=== PATIENT | male | born 1960 | race Caucasian/White ===

== ENCOUNTER 2019-04-05 11:24 | Inpatient (IN) ==
[2019-04-05] MEDS ORDERED: NS 1,000 ML IV ONE (11:59)
[2019-04-05] MEDS ORDERED: MORPHINE IV ONE (11:59)
[2019-04-05] MEDS ORDERED: VANCOMYCIN 1 GM/NS 1 GM/250 ML IVPB IV ONE ×2 (11:59→16:00)
[2019-04-05] MEDS ORDERED: ZOSYN 4.5 GM in NS 100 ML IV ONE (11:59)
[2019-04-05] MEDS ORDERED: ZOFRAN IV ONE (11:59)
[2019-04-05 12:37] LABS: ALLEN TEST YES; BE 2.3 mmoll (-3.0-3.0); BLOOD TYPE ARTERIAL; HCO3-(ACT) 26.6 mmoll (20.0-26.0); METHB 0.4 % (0.0-1.5); O2(CT) 11.6 mL/dL (15.0-23.0); O2HB 90.7 % (95.0-99.0); PCO2(98.6) 38 mmHg (35-45); PO2(98.6) 55 mmHg (60-100); SAMPLE BLOOD; SAO2 92.9 % (95.0-100.0); THB 9.1 g/dL (11.5-17.4); pH(98.6) 7.45 (7.35-7.45)
[2019-04-05 12:38] LABS: MODALITY ROOM AIR
--- NOTE | 2019-04-05 12:57 | Diag Imaging Result Doc PS360 ---
EXAM: CHEST-PORTABLE 04/05/2019 HISTORY: fever TECHNIQUE: AP portable at 1247 COMMENT: There is increased pulmonary vascularity. The heart size does not appear to be enlarged. The inspiration is slightly less optimal than on 06/29/2018. Otherwise, there has been no significant change. IMPRESSION: Stable chest. Electronically signed by Moody Balderrama 04/05/2019 12:54 PM
--- NOTE | 2019-04-05 12:59 | Diag Imaging Result Doc PS360 ---
EXAM: FOOT COMPLETE LEFT 04/05/2019 HISTORY: osteomyelitis heel TECHNIQUE: Three views COMMENT: There is soft tissue gas throughout the plantar aspect of the heel. This may be due to gas gangrene. There has been amputation of the distal midportion of the fifth metatarsal. Compared to the previous study of 12/01/2012 the plantar spur of the calcaneus is not as well demonstrated and may be eroded. This may be an indication of osteomyelitis. IMPRESSION: Superficial osteomyelitis of the plantar aspect of the calcaneus. Possible gas gangrene. Electronically signed by Moody Balderrama 04/05/2019 12:56 PM
[2019-04-05 13:00] LABS: BASO# 0.02 X1000 (0.0-0.2); BASO% 0.1 % (0.0-0.8); EOS# 0.65 X1000 (0.0-0.7); HEMATOCRIT 27.7 % (42.0-52.0); HEMOGLOBIN 8.8 g/dL (14.0-18.0); IMM GRAN# 0.05 X1000 (0.0-0.04); IMM GRAN% 0.3 % (0.0-0.5); LYMPH# 1.09 X1000 (1.2-3.4); LYMPH% 6.7 % (20.5-51.1); MCH 27.1 PG (27-31); MCHC 31.8 g/dL (33-37); MCV 85.2 FL (81-99); MONO# 1.64 X1000 (0.11-0.59); MPV 9.5 FL (7.4-10.4); NEUT# 12.93 X1000 (1.4-6.5); NEUT% 78.9 % (42.2-75.2); PLT 478 X1000 (130-400); RBC 3.25 XMIL (4.7-6.1); RDW 13.6 % (11.5-14.5); WBC 16.38 X1000 (4.8-10.8)
[2019-04-05 13:09] LABS: AGAP 13; ALBUMIN 2.9 g/dL (3.5-5.0); ALKALINE PHOSPHATASE 213 U/L (32-122); BUN 29 mg/dL (8-22); CALCIUM 8.2 mg/dL (8.8-10.2); CHLORIDE 97 mmol/L (98-107); COSMO 278; ESTIMATED GFR > 60; GLUCOSE 136 mg/dL (70-104); GOT 17 U/L (10-34); GPT 13 U/L (10-44); MAGNESIUM 1.5 mg/dL (1.5-2.7); POTASSIUM 3.9 mmol/L (3.5-5.1); SODIUM 135 mmol/L (136-145); TCO2 25 mmol/L (25-35); TOTAL BILIRUBIN 0.85 mg/dL (0.20-1.00); TOTAL PROTEIN 5.8 g/dL (6.3-8.3)
[2019-04-05 13:11] LABS: INR 1.87; PROTIME 21.9 Seconds (11.0-16.0)
--- NOTE | 2019-04-05 13:13 | EKG Report ---
Test Performed on : 04/05/2019 1:09:03 PM Test Reason : fever Blood Pressure : / mmHG Vent. Rate : 078 BPM Atrial Rate : 078 BPM P-R Int : 170 ms QRS Dur : 096 ms QT Int : 390 ms P-R-T Axes : -05 -06 183 degrees QTc Int : 444 ms Normal sinus rhythm. Low voltage QRS Nonspecific T wave abnormality Abnormal ECG When compared with ECG of 01-JUN-2018 18:06, aberrant conduction. is no longer present Unconfirmed Result
[2019-04-05 13:34] LABS: ACETONE SERUM NEGATIVE (NEGATIVE)
--- NOTE | 2019-04-05 14:17 | PROVIDER DOCUMENTATION ---
This chart was entered by Aislinn Bo Scribe, acting as scribe for Kendall De Leon MD. HPI-Rash/Wound/ReCheck - General Stated Complaint: Left foot eval Time Seen by Provider: 04/05/19 11:58 Source: patient Allergies/Adverse Reactions: Allergies Allergy/AdvReac Type Severity Reaction Status Date / Time adhesive tape Allergy RASH Verified 01/23/19 16:14 Bleach (Sodium Hypochlorite) Allergy RASH Verified 01/23/19 16:14 Iodinated Contrast Media AdvReac Unknown Verified 01/23/19 16:14 [IV Dye] Home Medications: Home Medication List Medication Instructions Recorded Confirmed Last Taken Type Isosorbide Mononitrate E.r. [Imdur] 60 mg PO DAILY tablet 10/28/17 06/28/18 06/28/18 Rx Omeprazole 20 mg PO ACB 04/18/18 06/28/18 06/28/18 History Potassium Chloride 10 meq PO BID 04/18/18 06/28/18 06/27/18 History Pregabalin [Lyrica] 75 mg PO BID 04/18/18 06/28/18 06/28/18 History Hydrocodone/Acetaminophen 1 tab PO TID PRN #14 tab 05/26/18 06/28/18 06/28/18 Rx [Hydrocodone-Acetamin 7.5-325] Torsemide 20 mg PO BID 06/28/18 06/28/18 06/28/18 08:00 History Chlorhexidine Gluconate [Peridex] 15 ml MT BID udc 07/06/18 Unknown Rx Furosemide [Lasix] 40 mg PO DAILY tablet 07/06/18 Unknown Rx Hydrocodone/APAP 7.5 mg/325 mg 1 each PO Q6H PRN PRN tablet 07/06/18 Unknown Rx [[place]-7.5] Levofloxacin [Levaquin] 750 mg PO DAILY tablet 07/06/18 Unknown Rx Menthol/Zinc Oxide Ointment 2 gm TOP 4XDAY tube 07/06/18 Unknown Rx [Calmoseptine Ointment] Multivitamins/Iron [Hemocyte Plus 1 each PO DAILY capsule 07/06/18 Unknown Rx Capsule] Potassium Chloride E.r. [Klor-Con] 10 meq PO DAILY tablet 07/06/18 Unknown Rx Spironolactone [Aldactone] 25 mg PO DAILY tablet 07/06/18 Unknown Rx Tamsulosin [Flomax] 0.4 mg PO DAILY capsule 07/06/18 Unknown Rx Vortioxetine Hydrobromide 10 mg PO DAILY tablet 07/06/18 Unknown Rx [Trintellix] - History of Present Illness-Dermatology Nature of Presenting Problem: Patient is a 58 year old male who presents to the ED via EMS with skin ulcer to left heel. Report skin ulcer has gradually worsened. States chills. History of diabetes. Location: reports: feet (left heel) Quality: reports: painful Severity: reports: mild Onset/Duration: reports: gradual Timing: reports: still present, getting worse Context/Associated Symptoms: reports: other (skin ulcer) Locality of [place]: Home Similar Symptoms Previously?: Yes Recently seen or treated by another doctor?: No Review of Systems - Adult - REVIEW OF SYSTEMS - ADULT Constitutional: reports: see HPI, chills. denies: fever, fatique Eyes: reports: no symptoms reported Ears, Nose, Mouth & Throat: reports: no symptoms reported Cardiovascular: reports: no symptoms reported Respiratory: reports: no symptoms reported Gastrointestinal: reports: no symptoms reported Genitourinary: reports: no symptoms reported Musculoskeletal: reports: no symptoms reported Integumentary: reports: see HPI, skin sores/ulcer (skin ulcer to left heel). de nies: hives, itching, rash Neurological: reports: no symptoms reported Psychiatric: reports: no symptoms reported Endocrine: reports: no symptoms reported Hematologic/Lymphatic: reports: no symptoms reported Allergic/Immunologic: reports: no symptoms reported All Other Systems: Reviewed and Negative Past History - Adult - PAST MEDICAL HISTORY-ADULT Review of Records: reports: Old Records Reviewed, Social history reviewed & non- contributory. Major Childhood Illnesses: reports: denies history Cardiovascular: reports: CAD, CHF, HTN, hyperlipidemia, [place] Respiratory: reports: denies history Gastrointestinal: reports: GERD Obstetrical/Gynecological: reports: denies history Genitourinary: reports: denies history Musculoskeletal: reports: arthritis, other (osteomyelitis) Neurological: reports: denies history Psychiatric: reports: denies history Endocrine/Immune: reports: Diabetes Other Conditions: reports: denies history - PRIOR SURGERIES/PROCEDURES Surgical/Procedure History: reports: reviewed, not pertinent, appendectomy, cardiac stent, other (right BKA) - PRIOR HOSPITALIZATIONS Prior Hospitalizations: reports: other (hx of osteomyelitis) - IMMUNIZATION STATUS Childhood Immunizations: UTD Flu Vaccine: UTD - FAMILY HISTORY Family History: diabetes, reviewed, not pertinent - SOCIAL HISTORY Smoking: denies Substance Use: denies Physical Exam-General - PHYSICAL EXAM-ADULT Initial Vital Signs Reviewed: Yes - CONSTITUTIONAL General Appearance: alert, no apparent distress, obese. negative: lethargic - HEAD, EARS, NOSE, MOUTH & THROAT HENMT: normocephalic/atraumatic, moist mucous membranes. negative: angioedema - RESPIRATORY Respiratory: chest non-tender, lungs clear, normal breath sounds. negative: rales, rhonchi, wheezing - CARDIOVASCULAR Cardiovascular: normal peripheral pulses, regular rate, rhythm. negative: tachycardia - GASTROINTESTINAL (ABDOMEN) Abdominal Exam: normal bowel sounds, non tender, soft. negative: guarding - MUSCULOSKELETAL Extremity: other (7 cm by 5 cm area of necrosis to left heel with edema, erythema, warmth and foul odor. right BKA. chronic stasis dermatitis to left lower extremity.) Peripheral Pulses: dorsalis-pedis (R): 0 (BKA ), dorsalis-pedis (L): 2+ - SKIN Integumentary: other (7 cm by 5 cm area of necrosis to left heel with edema, erythema, warmth and foul odor. chronic stasis dermatitis to left lower extremity.) - NEUROLOGIC Neurologic: grossly normal. negative: aphasia, facial droop - PSYCHIATRIC Psych/Mental Status: normal mood/affect. negative: anxious, paranoid Progress - PLAN OF CARE/RESULTS Progress/Plan/Lab Results: Vital Signs - 8 hr 04/05/19 11:30 04/05/19 14:13 Temperature 98.6 F Pulse Rate 77 Respiratory Rate 20 Blood Pressure 117/53 O2 Sat by Pulse Oximetry 97 Laboratory Results - last 24 hr 04/05/19 04/05/19 04/05/19 12:15 12:25 12:25 WBC 16.38 H RBC 3.25 L Hgb 8.8 L Hct 27.7 L MCV 85.2 MCH 27.1 MCHC 31.8 L RDW Std Deviation 13.6 Plt Count 478 H MPV 9.5 Immature Gran % (Auto) 0.3 Neut % (Auto) 78.9 H Lymph % (Auto) 6.7 L Randolph % (Auto) 10.0 H Eos % (Auto) 4.0 Baso % (Auto) 0.1 Immature Gran # (Auto) 0.05 H Neut # (Auto) 12.93 H Lymph # (Auto) 1.09 L Randolph # (Auto) 1.64 H Eos # (Auto) 0.65 Baso # (Auto) 0.02 PT INR Specimen Type ARTERIAL Sample Site L RADIAL pH 7.45 pCO2 38 pO2 55 L HCO3 26.6 H Base Excess 2.3 Oxyhemoglobin 90.7 L ABG O2 Sat (Calculated) 11.6 L ABG O2 Saturation 92.9 L ABG Carboxyhemoglobin 2.00 ABG Methemoglobin 0.4 Harjeet Test YES A-a O2 Difference 47.0 Total Hemoglobin 9.1 L Lactate 0.90 Blood Gas Modality ROOM AIR FiO2 % 21.0 Sodium 135 L Potassium 3.9 Chloride 97 L Carbon Dioxide 25 Anion Gap 13 BUN 29 H Creatinine 1.0 Estimated GFR/1.73 m2 > 60 BUN/Creatinine Ratio 29 Glucose 136 H POC Glucose Calculated Osmolality 278 Calcium 8.2 L Magnesium 1.5 Total Bilirubin 0.85 AST 17 ALT 13 Alkaline Phosphatase 213 H Troponin T [id number]-K-Yprdshluuix Pept Total Protein 5.8 L Albumin 2.9 L Globulin 2.9 Albumin/Globulin Ratio 1.0 Plasma Lactate Acetone Level NEGATIVE Blood Type Antibody Screen 04/05/19 04/05/19 04/05/19 12:25 12:25 12:25 WBC RBC Hgb Hct MCV MCH MCHC RDW Std Deviation Plt Count MPV Immature Gran % (Auto) Neut % (Auto) Lymph % (Auto) Randolph % (Auto) Eos % (Auto) Baso % (Auto) Immature Gran # (Auto) Neut # (Auto) Lymph # (Auto) Randolph # (Auto) Eos # (Auto) Baso # (Auto) PT 21.9 H INR 1.87 Specimen Type Sample Site pH pCO2 pO2 HCO3 Base Excess Oxyhemoglobin ABG O2 Sat (Calculated) ABG O2 Saturation ABG Carboxyhemoglobin ABG Methemoglobin Harjeet Test A-a O2 Difference Total Hemoglobin Lactate Blood Gas Modality FiO2 % Sodium Potassium Chloride Carbon Dioxide Anion Gap BUN Creatinine Estimated GFR/1.73 m2 BUN/Creatinine Ratio Glucose POC Glucose Calculated Osmolality Calcium Magnesium Total Bilirubin AST ALT Alkaline Phosphatase Troponin T Tnp-[id number]-Ajmjyvemyxz Pept 9843 H Total Protein Albumin Globulin Albumin/Globulin Ratio Plasma Lactate 1.1 Acetone Level Blood Type Antibody Screen 04/05/19 04/05/19 04/05/19 12:25 12:25 13:10 WBC RBC Hgb Hct MCV MCH MCHC RDW Std Deviation Plt Count MPV Immature Gran % (Auto) Neut % (Auto) Lymph % (Auto) Randolph % (Auto) Eos % (Auto) Baso % (Auto) Immature Gran # (Auto) Neut # (Auto) Lymph # (Auto) Randolph # (Auto) Eos # (Auto) Baso # (Auto) PT INR Specimen Type Sample Site pH pCO2 pO2 HCO3 Base Excess Oxyhemoglobin ABG O2 Sat (Calculated) ABG O2 Saturation ABG Carboxyhemoglobin ABG Methemoglobin Harjete Test A-a O2 Difference Total Hemoglobin Lactate Blood Gas Modality FiO2 % Sodium Potassium Chloride Carbon Dioxide Anion Gap BUN Creatinine Estimated GFR/1.73 m2 BUN/Creatinine Ratio Glucose POC Glucose 136 H Calculated Osmolality Calcium Magnesium Total Bilirubin AST ALT Alkaline Phosphatase Troponin T 0.203 H Hmy-C-Esvcapdwrzn Pept Total Protein Albumin Globulin Albumin/Globulin Ratio Plasma Lactate Acetone Level Blood Type O POSITIVE Antibody Screen NEGATIVE Orders Category Date Time Status Finger Stick Blood Sugar (ED) DIRECTED Care 04/05/19 11:57 Active Nursing- Obtain EKG once Care 04/05/19 11:57 Active Saline Loc NOW Care 04/05/19 11:57 Active CHEST-PORTABLE [RAD] Stat Exams 04/05/19 11:58 Completed FOOT COMPLETE LEFT [RAD] Stat Exams 04/05/19 11:58 Completed ABG [RESP] Routine Lab 04/05/19 12:15 Completed ACETONE SERUM [CHEM] Stat Lab 04/05/19 12:25 Completed BLOOD CULTURE [BLDCUL] Stat Lab 04/05/19 12:30 Results CBC WITH ELECTRONIC DIFF [HEME] Stat Lab 04/05/19 12:25 Completed COMPREHENSIVE METABOLIC PANEL [CHEM] Stat Lab 04/05/19 12:25 Completed LACTATE, PLASMA [CHEM] Stat Lab 04/05/19 12:25 Completed MAGNESIUM [CHEM] Stat Lab 04/05/19 12:25 Completed PRO B-NATRIURETIC PEPTIDE Stat Lab 04/05/19 12:25 Completed PROTIME WITH INR [COAG] Stat Lab 04/05/19 12:25 Completed SED RATE [HEME] Stat Lab 04/05/19 11:58 Received TROPONIN T Stat Lab 04/05/19 12:25 Completed TYPE & SCREEN [BBK] Stat Lab 04/05/19 12:25 Completed URINALYSIS W/POSS RFLX CULT [URINALYSIS] Stat Lab 04/05/19 11:58 Uncollected WOUND CULTURE INC GRAM STAIN [RM] Routine Lab 04/05/19 12:42 Received 0.9% Sodium Chloride Inj [Ns] 1,000 ml Med 04/05/19 11:59 Discontinued IV 999 mls/hr Morphine Med 04/05/19 11:59 Discontinued 4 mg IV NOW ONE Ondansetron [Zofran] Med 04/05/19 11:59 Discontinued 4 mg IV NOW ONE Piperacillin/Tazobactam [Zosyn] 4.5 gm Med 04/05/19 11:59 Discontinued 0.9% Sodium Chloride Inj [Ns] 100 ml IV NOW Vancomycin 1 gm/Ns Med 04/05/19 11:59 Discontinued 1 gm in 250 ml IV NOW EKG [EKG] Stat Ther 04/05/19 11:57 Draft Result Diagrams: 04/05/19 12:25 04/05/19 12:25 - EKG 1 Time of EKG reading by physician:: 13:09 EKG Read and Signed by:: Kendall De Leon EKG Interpretation (*Must complete 3 of following elements*): Abnormal Rate: 78 Rhythm: normal sinus rhythm [place]: normal QRS: other (low voltage) [place] Interval: normal Comments: nonspecific T wave abnormality. - XRAY 1 XRAY Study: Chest Impression: See EMR Report ( EXAM: CHEST-PORTABLE 04/05/2019 HISTORY: fever TECHNIQUE: AP portable at 1247 COMMENT: There is increased pulmonary vascularity. The heart size does not appear to be enlarged. The inspiration is slightly less optimal than on 06/29/2018. Otherwise, there has been no significant change. IMPRESSION: Stable chest. Electronically signed by Moody Balderrama 04/05/2019 12:54 PM 04/05/19 1254 Interpreting Physician: Moody Balderrama MD Dictated Date/Time: 04/05/19 1253 cc: Kendall De Leon MD; Dru Ye MD) 2 XRAY: Left XRAY Study: Foot (EXAM: FOOT COMPLETE LEFT 04/05/2019 HISTORY: osteomyelitis heel TECHNIQUE: Three views COMMENT: There is soft tissue gas throughout the plantar aspect of the heel. This may be due to gas gangrene. There has been amputation of the distal midportion of the fifth metatarsal. Compared to the previous study of 12/01/2012 the plantar spur of the calcaneus is not as well demonstrated and may be eroded. This may be an indication of osteomyelitis. IMPRESSION: Superficial osteomyelitis of the plantar aspect of the calcaneus. Possible gas gangrene. Electronically signed by Moody Balderrama 04/05/2019 12:56 PM 04/05/19 1256 Interpreting Physician: Moody Balderrama MD Dictated Date/Time: 04/05/19 1255 cc: Kendall De Leon MD; Dru Ye MD) - CONSULTS/PCP/HOSPITALIST Notification #1 *Consult/PCP/Hospitalist*: Dr. Ye Time Discussed: 13:33 Reason/Comments: Dr. De Leon consulted with Dr. Ye about patient. Consult Disposition: other (Dr. Ye states patient is not his private patient.) #2 Consult: AURELIO Alvarado Time Discussed: 14:15 Consult Disposition: Will see in ED Departure - Departure Date of Disposition Decision: 04/05/19 Time of Disposition Decision: 13:31 DIAGNOSIS: Gangrene, Acute osteomyelitis of left calcaneus, Elevated troponin I level, Type 2 diabetes mellitus with hyperglycemia, with long-term current use of insulin Congestive heart failure (CHF) Qualifiers: Heart failure type: combined systolic and diastolic Heart failure chronicity: acute on chronic Qualified Code(s): I50.43 - Acute on chronic combined systolic (congestive) and diastolic (congestive) heart failure Anemia Qualifiers: Anemia type: iron deficiency Iron deficiency anemia type: other iron deficiency Qualified Code(s): D50.8 - Other iron deficiency anemias Disposition: ADMITTED INPATIENT 09 Certified Medical Emergency: Emergent Condition: Fair Referrals and Follow-Ups: Dru Ye MD [Primary Care Provider] - - Critical Care Note This patient required my direct & personal management of CC.: Yes Total Time (mins): 35 (multiple physician consults, discussion with family. evaluate for possible sepsis) Critical Care Statement: This patient required my direct personal management to treat or rule out processes, the absence of which, could potentiallly result in sudden, clinically significant life or limb threatening deterioration. Attestation - Physician/ LUZ ELENA Attestation Patient care was provided by Advanced Practice Provider:: No The physician spent face to face time with patient:: Yes Advanced Practice Provider documentation review:: Supervising physician onsite and consulted in the evaluation and care of this patient. The physician did have a face to face encounter with the patient. This chart was documented by the indicated scribe, (Aislinn Bo Scribe) and accurately reflects the services I performed and decisions made by me, Kendall De Leon MD, as attested by the provider's signature.
[2019-04-05] MEDS ORDERED: VANCOMYCIN IV PER PHARMACY MISC SCH (14:45)
[2019-04-05 15:02] LABS: URINE SOURCE CLEAN CATCH
[2019-04-05 15:16] LABS: BILIRUBIN URINE NEGATIVE (NEGATIVE); BLOOD URINE SMALL (NEGATIVE); COLOR YELLOW; GLUCOSE URINE NEGATIVE (NEGATIVE); KETONE URINE NEGATIVE (NEGATIVE); LEUKOCYTES URINE LARGE (NEGATIVE); NITRITE URINE NEGATIVE (NEGATIVE); PROTEIN URINE 30 mg/dL (NEGATIVE); SP GRAVITY URINE 1.014; TURBIDITY URINE HAZY (CLEAR); UR EPITHELIAL CELLS <10 /HPF (<10); URINE BACTERIA 1+ /HPF; URINE RBC <10 /HPF (<10); URINE WBC TNTC /HPF (<10); UROBILINOGEN URINE NORMAL (NORMAL)
[2019-04-05] MEDS ORDERED: NORCO-7.5 PO PRN (15:44)
[2019-04-05] MEDS ORDERED: BOUDREAUXS BUTT PASTE TOP PRN (16:46)
[2019-04-05] MEDS ORDERED: ATARAX PO PRN (16:46)
[2019-04-05] MEDS ORDERED: LEVSIN PO PRN (16:46)
[2019-04-05] MEDS ORDERED: COMPAZINE PO PRN (16:46)
[2019-04-05] MEDS: NS 1,000 ML IV SCH (16:49)
[2019-04-05] MEDS: ZOSYN 3.375 GM in NS 50 ML IV SCH ×2 (16:49→22:05)
[2019-04-05] MEDS ORDERED: IMODIUM PO PRN (17:00)
[2019-04-05] MEDS: HUMALOG SUBQ SCH ×2 (17:17→21:44)
[2019-04-05] MEDS: REGLAN PO SCH (17:21)
--- NOTE | 2019-04-05 17:31 | HISTORY AND PHYSICAL ---
HISTORY OF PRESENT ILLNESS: This is a 58-year-old, fairly recent admission. He had a right foot infection and he was recently admitted before. That was back in June 2018 and then he had admission again I think in November of 2018. He had right [id number] amputation performed 06/2019 without complication. He did have slow improving renal function at that time and presents with a left foot infection, anaerobic smell, generalized swelling, discoloration in the heel. PAST MEDICAL HISTORY: 1. Hospitalization 06/01/2018 through 06/04/2019, diagnosed with diabetic foot ulcer of the right heel, right toe, peripheral vascular disease. 2. Diabetes mellitus type 2. 3. Esophageal stricture. 4. Diabetic neuropathy of both legs, lower extremities. 5. Coronary artery disease status post stent in 2013. SURGICAL HISTORY: 1. Appendectomy. 2. Debridement surgeries. 3. Partial amputation of the left 5th toe with osteomyelitis and debridement per Dr. Thapa in the past as well. 4. Right peroneal balloon angioplasty. 5. Percutaneous right popliteal atherectomy per Dr. Sultana. ALLERGIES: Adhesive tape. SOCIAL HISTORY: I think he lives with his brother. He is disabled and wheelchair and bed. REVIEW OF SYSTEMS: He does not report any fever or chills.HEENT: No change in hearing or visual acuity. Respiratory: No increased work of breathing or dyspnea. Cardiovascular: No chest pain or tachy palpitation. GI and : No gross hematuria, dysuria. Musculoskeletal/Neurologic: Other than the neuropathy and recurrent diabetic ulcers, left foot swelling with a foot ulcer. PHYSICAL EXAMINATION: VITAL SIGNS: Temperature 98.5 degrees, pulse 77, respirations 16, blood pressure 117/57. His weight is 315 pounds, height 6 feet 2 inches. HEENT: Pupils are equal and round. LUNGS: Clear in all lung masters. CARDIOVASCULAR: Regular rhythm and rate without murmur or S3. ABDOMEN: Soft. SKIN: Warm and dry. Left foot with generalized swelling and ecchymosis at the heel and feels purulent, strong anaerobic smell. I do not see any other skin rashes, oral or nasal mucosa lesions. NECK: Supple. No adenopathy or thyromegaly. LABORATORY: His white count 16,380, hematocrit 27, hemoglobin 8.8, platelet count is 478,000. Sodium 135, potassium 3.9, chloride 97, BUN 29, creatinine 1.0, blood sugar 136. AST 17, ALT is 13, alkaline phosphatase is 213. Troponin was 0.203. ProBNP is 9,843. ProTime is 21 with an INR 1.87. Urinalysis: Cbt-xhzfxufg-tb-count white blood cells, 1+ bacteria. His blood gas, pH is 7.45, pCO2 is 38, PO2 is 55, lactate level is 0.9, and this was on room air. Chest x-ray, stable chest. Increased pulmonary vascularity. Heart size does not appear to be enlarged. Inspiration is slightly less optimal with the comparison 06/29/2018. Otherwise, no significant change. Foot x-ray, 3 views of the left foot: Superficial osteomyelitis, osteomyelitis of the plantar aspect of the calcaneus, possible gas gangrene. ASSESSMENT AND PLAN: 1. Infection, possible osteomyelitis of the left foot. I suspect we will need debridement. We will put him on broad-spectrum antibiotics. 2. Diabetes mellitus type 2 with severe peripheral neuropathy. He is status post right below-the- knee amputation, so we will have him on vancomycin and Zosyn. Ask Infectious Disease to help follow. 3. Vascular insufficiency of both legs. Apparently was worse on the right. 4. Chronic kidney disease stage 3. His creatinine is 1.0 which I think is pretty good. 5. Chronic venous insufficiency, legs, with edema. 6. History of congestive heart failure which is chronic. His last echocardiogram was I believe in September 2017. He has mild to moderate mitral regurgitation, mild tricuspid regurgitation. There is no aortic stenosis. Mitral valve was normal. Tricuspid valve was normal. Normal left ventricular size. Ejection fraction was 40 to 45%. Some anteroseptal hypokinesis. 7. History of coronary artery disease. He does have an anemia, normocytic anemia. Hematocrit is 27, hemoglobin 8.8. Aware. Suspect this is anemia of chronic disease. cc: Harjeet Roberts MD
[2019-04-05] MEDS: ZOFRAN IV PRN (19:56)
[2019-04-05] MEDS ORDERED: MICRO-K PO SCH (21:00)
[2019-04-05] MEDS: HUMULIN 70/30 SUBQ SCH (21:43)
[2019-04-05] MEDS: KLOR-CON PO SCH (22:04)
[2019-04-05] MEDS: COREG PO SCH (22:05)
[2019-04-06] MEDS: ZOSYN 3.375 GM in NS 50 ML IV SCH ×4 (02:47→23:00)
[2019-04-06] MEDS: VANCOMYCIN 1,800 MG in NS 500 ML IV SCH ×2 (05:02→18:42)
--- NOTE | 2019-04-06 05:15 | GENERAL SURGERY CONSULTATION ---
DATE: 04/05/2019 REASON FOR CONSULTATION: Left diabetic foot infection and osteomyelitis. HISTORY OF PRESENT ILLNESS: This is a 58-year-old male with known diabetic foot ulcers and peripheral vascular disease, who has been living at home with a long-standing left heel ulcer. Recently it started having swelling, warmth, and drainage. He is feeling nauseated and presented to the emergency room for further evaluation. PAST MEDICAL HISTORY: Peripheral vascular disease, diabetic foot ulcers, diabetes, chronic heart failure, coronary artery disease with a history of stents, esophageal stricture, diabetic neuropathy and retinopathy. PAST SURGICAL HISTORY: Angioplasties of the right lower extremity, right foot debridement, right BKA, partial amputation of toes on the left foot, appendectomy. SOCIAL HISTORY: He is nonambulatory, uses a mechanical wheelchair. He does have history of smoking, alcohol, or illicit drug use. ALLERGIES: Iodinated contrast media, bleach, adhesive tape. FAMILY HISTORY: Reviewed and noncontributory. HOME MEDICATIONS: Omeprazole, Imdur, Lyrica, torsemide, Flomax, Aldactone, Trintellix. REVIEW OF SYSTEMS: Ten systems reviewed and negative, except as noted above, as well as also he states he has chills. PHYSICAL EXAM: Vital signs: Temperature 98.5 degrees, pulse 77, respiratory rate 16, blood pressure 117/57. General: This is a chronically ill-appearing male who looks older than the stated age, in no acute distress. HEENT: Normocephalic, atraumatic. Extraocular muscles intact. Pupils equal, round, reactive to light. Sclerae anicteric. Neck: Supple. Trachea midline. No thyromegaly. Cardiovascular: Regular rate and rhythm. Respiratory: Clear bilateral breath sounds. No work of breathing. Gastrointestinal: Soft, obese, nontender, nondistended. No organomegaly or mass. Musculoskeletal: He is status post right BKA, which is well healed. He does move his left foot and both arms equally. Skin: He has significant edema of the lower left lower leg. There is a large eschar on the left heel with some bogginess to it and foul odor. LABORATORY: White cell count 16,000, hemoglobin 8.8, hematocrit 27, platelet count 478,000. INR 1.87. A pH 7.45, pCO2 is 38, PaO2 is 55, bicarb 26. Lactate 0.9. Glucose 136; BUN 29, creatinine 1.0, alkaline phosphatase 213. Urinalysis positive for bacteria and white blood cells, negative for nitrite. IMAGING: Left foot x-ray shows soft tissue gas throughout the plantar aspect of the heel and some erosion of the calcaneus. This is likely superficial osteomyelitis and possibly gas gangrene. ASSESSMENT AND PLAN: A 58-year-old male with diabetic foot infection with a left heel decubitus ulcer, possible osteomyelitis, and gas gangrene. He is hemodynamically stable. Vancomycin and Zosyn have been ordered. We will plan debridement in the operating room tomorrow. The salvageability of this foot is certainly in question. We will follow up with lower extremity arterial studies once he is stable. cc: Eduardo Escudero MD
[2019-04-06 06:10] LABS: BASO# 0.02 X1000 (0.0-0.2); BASO% 0.1 % (0.0-0.8); EOS% 3.8 % (0.0-10.0); HEMATOCRIT 25.4 % (42.0-52.0); IMM GRAN# 0.05 X1000 (0.0-0.04); IMM GRAN% 0.3 % (0.0-0.5); LYMPH# 1.27 X1000 (1.2-3.4); MCH 27.2 PG (27-31); MCHC 31.5 g/dL (33-37); MCV 86.4 FL (81-99); MONO% 8.9 % (1.7-9.3); MPV 9.5 FL (7.4-10.4); NEUT# 12.46 X1000 (1.4-6.5); NEUT% 78.9 % (42.2-75.2); PLT 463 X1000 (130-400); RBC 2.94 XMIL (4.7-6.1); RDW 13.6 % (11.5-14.5)
[2019-04-06] MEDS: NS 1,000 ML IV SCH ×2 (06:34→17:39)
[2019-04-06] MEDS: HUMALOG SUBQ SCH ×4 (06:36→22:28)
[2019-04-06] MEDS: PRILOSEC PO SCH (06:37)
[2019-04-06 06:42] LABS: AGAP 13; ALB/GLOB RATIO 0.8; ALBUMIN 2.5 g/dL (3.5-5.0); ALKALINE PHOSPHATASE 173 U/L (32-122); BUN 27 mg/dL (8-22); CALCIUM 8.2 mg/dL (8.8-10.2); CHLORIDE 103 mmol/L (98-107); COSMO 285; CREATININE 1.1 mg/dL (0.7-1.2); ESTIMATED GFR > 60; GLUCOSE 105 mg/dL (70-104); GOT 14 U/L (10-34); GPT 10 U/L (10-44); POTASSIUM 3.8 mmol/L (3.5-5.1); SODIUM 140 mmol/L (136-145); TCO2 24 mmol/L (25-35); TOTAL BILIRUBIN 0.66 mg/dL (0.20-1.00); TOTAL PROTEIN 5.8 g/dL (6.3-8.3)
[2019-04-06 06:49] LABS: FREE T4 1.11 ng/dL (0.93-1.70); TSH 2.46 uIUmL (0.27-4.20)
[2019-04-06] MEDS ORDERED: PRILOSEC PO SCH (07:00)
[2019-04-06] MEDS: COREG PO SCH ×2 (08:07→22:29)
[2019-04-06] MEDS: REGLAN PO SCH ×3 (08:35→16:23)
[2019-04-06] MEDS ORDERED: VERSED ONE (10:18)
[2019-04-06] MEDS ORDERED: DIPRIVAN 1% ONE (10:18)
[2019-04-06] MEDS ORDERED: FENTANYL ONE (10:18)
[2019-04-06] MEDS ORDERED: XYLOCAINE-MPF 2% ONE (10:18)
[2019-04-06 10:33] LABS: URINE SOURCE CATH
[2019-04-06] MEDS ORDERED: QUELICIN (DOSE) ONE (10:33)
[2019-04-06 10:37] LABS: BILIRUBIN URINE NEGATIVE (NEGATIVE); BLOOD URINE MODERATE (NEGATIVE); COLOR YELLOW; GLUCOSE URINE NEGATIVE (NEGATIVE); KETONE URINE TRACE mg/dL (NEGATIVE); LEUKOCYTES URINE LARGE (NEGATIVE); NITRITE URINE NEGATIVE (NEGATIVE); PROTEIN URINE TRACE mg/dL (NEGATIVE); SP GRAVITY URINE 1.016; TURBIDITY URINE HAZY (CLEAR); UR EPITHELIAL CELLS <10 /HPF (<10); URINE BACTERIA NEGATIVE /HPF; URINE RBC <10 /HPF (<10); URINE WBC TNTC /HPF (<10); UROBILINOGEN URINE NORMAL (NORMAL)
[2019-04-06] MEDS ORDERED: DECADRON ONE (11:48)
[2019-04-06] MEDS ORDERED: ZOFRAN ONE (11:48)
--- NOTE | 2019-04-06 13:49 | INFECTIOUS DISEASE CONSULT REP ---
DATE: 04/06/2019 CONCLUSION: The patient has a gangrenous left foot with possible gas gangrene and osteomyelitis. The patient also has a urinary tract infection and urinary retention. RECOMMENDATIONS: I agree with treating the patient with vancomycin and Zosyn. I ordered a bladder scan on the patient and it showed that the bladder had 1,557 mL of urine. I ordered to have a Paula catheter placed. DISCUSSION: The patient over a period of weeks has developed gangrene of the left foot. He was admitted to the hospital. The patient's x-ray showed possible heel osteomyelitis and gas gangrene. The patient's CBC shows a white count of 15,080, hemoglobin 8, and platelet count 463,000. Arterial blood gases show a pH of 7.45, a pO2 of 55, and a pCO2 of 38. Creatinine is 1.1. GFR is greater than 60. The alkaline phosphatase is 173. Urinalysis showed white cells and bacteria. PAST MEDICAL HISTORY/REVIEW OF SYSTEMS: Eyes and Ears: The patient has decreased vision and hearing. Neck: No stiffness. Respiratory: The patient tells me that he has dyspnea for which he gets oxygen. GI: The patient has been anorexic, especially since his foot became infected. He is incontinent of stool. : The patient has decreased urine output. He is in urinary retention as mentioned above. Bones, Joints, and Muscles: The patient is bedbound because he has a bad infection in his left foot now and he also has a right below the knee amputation. Neurological: The patient does not have seizures. He has generalized weakness. PREVIOUS HOSPITALIZATIONS AND OPERATIONS: He has had a right below the knee amputation and a myocardial infarction. MEDICAL DISEASES: Positive for diabetes mellitus, hypertension, and a myocardial infarction. INFECTIOUS DISEASE HISTORY: Positive for pneumonia and foot gangrene. FAMILY HISTORY: Positive for diabetes mellitus, hypertension, myocardial infarction, stroke, and cancer. [place]IAL HISTORY[place] . He lives alone. He has 3 puppies. ALLERGIES: He is allergic to various tapes. Also, he is allergic adhesive tape, bleaches, and IV dye. MEDICATIONS TAKEN AT HOME: Include the following: Coreg, Lexapro, Lasix, hydrocodone, Atarax, Levsin, insulin, Imdur, Imodium, lorazepam, Reglan, morphine, omeprazole, Zofran, Compazine, Senna, Aldactone, Flomax, Zanaflex, Desyrel, and Coumadin. PHYSICAL EXAMINATION: Vital Signs: Temperature is 97.9, pulse 73, respirations 18, blood pressure 111/49. The patient is 6 feet 2 inches tall and weighs 281 pounds. General: This is an obese, chronically ill-appearing, middle-aged male. He is in no acute distress. Head, Eyes, Ears, Nose, and Throat: He can hear my spoken words and see near objects. He has poor oral hygiene. He does not have any white coating on his tongue. Neck: No meningismus. Lungs: Clear to auscultation. Cardiovascular: The patient's heart rate is regular. I did not hear a murmur. Abdomen: Soft and not tender. Extremities: The patient has a right below the knee amputation. The incision is intact. The patient's left foot shows at the heel that part of it is erythematous and it has gangrene and a foul odor. Neurological: The patient is alert. He can move his arms and his right leg but he had trouble moving his left leg when I examined him. He does not have a tremor. Integument: No rash noted. Thank you for the consult. cc: Sai Workman MD MTDD
[2019-04-06] MEDS ORDERED: MORPHINE ONE (14:08)
[2019-04-06] MEDS: HUMULIN 70/30 SUBQ SCH ×2 (15:00→22:27)
[2019-04-06] MEDS: KLOR-CON PO SCH ×2 (15:01→22:28)
[2019-04-06] MEDS: LEXAPRO PO SCH (15:02)
[2019-04-06] MEDS: LASIX PO SCH (15:03)
[2019-04-06] MEDS: FLOMAX PO SCH (15:03)
[2019-04-06] MEDS: IMDUR PO SCH (15:03)
[2019-04-06] MEDS: ASPIRIN EC PO SCH (15:03)
[2019-04-06] MEDS: ALDACTONE PO SCH (15:04)
[2019-04-06] MEDS: NORCO-7.5 PO PRN (16:23)
[2019-04-06] MEDS: MORPHINE IV PRN ×2 (17:55→22:20)
[2019-04-06] MEDS: ZOFRAN IV PRN (17:56)
--- NOTE | 2019-04-06 21:18 | OPERATIVE NOTE ---
PROCEDURE DATE: 04/06/2019 PREOPERATIVE DIAGNOSIS: Left heel infection, possible gas gangrene and left heel osteomyelitis. POSTOPERATIVE DIAGNOSIS: Left heel infection, possible gas gangrene and left heel osteomyelitis. PROCEDURE: Debridement of left heel wound converted to a left below-knee amputation. SURGEON: Eduardo Escudero MD. ESTIMATED BLOOD LOSS: 450 mL. COMPLICATIONS: None apparent. SPECIMENS: Lower left leg and foot. FINDINGS: The foot wound had extensive soft tissue necrosis including myonecrosis around the heel. There was evidence of fairly extensive chronic osteomyelitis of the calcaneus and there was some concern for gas gangrene. Therefore, we converted to a below-knee amputation. TECHNIQUE: He was brought to the operating room. General anesthesia was induced. He was initially placed in the prone position. His heel was prepped and draped in usual sterile fashion. Using a knife, I made a circumferential excision around the eschar and unroofed this necrotic tissue sharply. Underneath there was extensive soft tissue necrosis down to the bone, which appeared to be chronically infected. There was some semi-purulent or dishwater-type fluid and some areas of myonecrosis around the heel. Given these findings, I felt it was necessary to convert to a below-knee amputation, which the patient had previously been prepared for in the holding room and agreed to. The heel was wrapped with Kerlix gauze. He was then placed back in the supine position and re- prepped and draped in the usual sterile fashion. One handsbreadth below the tibial tuberosity, a horizontal incision was made with a knife and then carried down caudally on either side for posterior flaps. The dissection was carried down through the subcutaneous tissues and muscle with cautery exposing the tibia bone circumferentially as well as the fibula. As I encountered superficial veins they were individually clamped, divided, and ligated with 2-0 and 3-0 silk, some free ties and some stick ties. The peroneal artery and vein were encountered. They were both individually clamped proximally and distally, divided in between and the proximal ends were ligated with 2-0 silk stick tie. The fibula was then divided with a bone cutter. The periosteal elevator was used to elevate the soft tissue off of the tibia and approximately 2 cm proximal to where the skin was overlying the tibia I then divided the tibia with a bone saw. I divided the posterior soft tissue attachments with the amputation knife. The posterior tibial artery and peroneal artery were both clamped proximally. They were ligated with 2-0 silk stick ties. The previous vascular bundle was the anterior tibial artery. I then excised a portion of the gracilis muscle sharply to allow for flap closure. A portion of the distal skin was also excised sharply with the knife and cautery to allow for better approximation of the skin. I filed the tibia down with a bone file until it was smooth and then irrigated out the wound copiously with saline. Cautery was used to obtain hemostasis of small bleeders in the muscle and skin and then I proceeded to approximate the fascia with interrupted [id number] 0 Vicryl. The skin was closed with skin clips. A dressing was applied. There were no apparent complications. He was transferred to recovery room in stable condition. cc: Eduardo Escudero MD
--- NOTE | 2019-04-06 21:35 | PROGRESS NOTE ---
DATE: 04/06/2019 SUBJECTIVE: The patient feels good, and denies having any acute complaints. OBJECTIVE: Vital signs: Temperature 98.2 degrees, pulse 74 per minute, respiratory rate 16 per minute, blood pressure 135/64, pulse oximetry 96% on room air.General: The patient is alert and oriented x3. He does not appear to be in any acute distress. Cardiovascular system: First and second heart sounds are audible without any murmurs or gallops. Respiratory system: No respiratory distress noted. Bilateral lung air entry is good without any rales or rhonchi. Gastrointestinal system: Abdomen is soft and nondistended. Normal bowel sounds are present. Musculoskeletal system: Bilateral below-knee amputation noted. The left below-knee amputation is recent and has been done just earlier today. LABORATORY DATA: CBC shows WBC count of 15.80 with 78.9% neutrophils. Hemoglobin and hematocrit are low at 8.0 and 25.4. In comparison, his hemoglobin was 8.8 and hematocrit 27.7 yesterday. His white blood cell count was 16.38 yesterday. Comprehensive metabolic panel done this morning is showing low albumin of 2.5, with total protein of 5.8. The rest of the comprehensive metabolic panel is nondiagnostic. IMPRESSION: 1. Osteomyelitis of the left foot, status post left-sided below-knee amputation. 2. Urinary tract infection. 3. Type 2 diabetes mellitus that has been uncontrolled. 4. Peripheral artery disease. 5. Peripheral neuropathy. 6. Chronic systolic congestive heart failure. 7. Coronary artery disease that has been stable. PLAN: The patient will be continued on IV Zosyn, and we will continue with the current insulin regimen for his diabetes control. He is also on vancomycin as per pharmacy protocol. We will continue to provide him supportive care. I believe he should start feeling better and his overall condition should get better since the left below-knee amputation has been performed. cc: Parker Renteria MD
[2019-04-06] MEDS: PERIDEX MT SCH (22:56)
[2019-04-07] MEDS: NS 1,000 ML IV SCH ×3 (02:00→22:38)
[2019-04-07] MEDS: NORCO-7.5 PO PRN ×2 (02:00→22:15)
[2019-04-07] MEDS: ZOSYN 3.375 GM in NS 50 ML IV SCH ×4 (05:03→22:14)
[2019-04-07] MEDS: VANCOMYCIN 1,800 MG in NS 500 ML IV SCH (06:04)
[2019-04-07] MEDS: PRILOSEC PO SCH (06:05)
[2019-04-07] MEDS: MORPHINE IV PRN ×3 (06:08→19:22)
[2019-04-07] MEDS: HUMALOG SUBQ SCH ×4 (07:02→22:25)
[2019-04-07 07:20] LABS: BASO# 0.01 X1000 (0.0-0.2); BASO% 0.1 % (0.0-0.8); HEMATOCRIT 32.6 % (42.0-52.0); HEMOGLOBIN 10.7 g/dL (14.0-18.0); IMM GRAN# 0.04 X1000 (0.0-0.04); IMM GRAN% 0.3 % (0.0-0.5); LYMPH# 0.72 X1000 (1.2-3.4); LYMPH% 5.3 % (20.5-51.1); MCH 27.7 PG (27-31); MCHC 32.8 g/dL (33-37); MCV 84.5 FL (81-99); MONO# 0.71 X1000 (0.11-0.59); MONO% 5.3 % (1.7-9.3); MPV 9.5 FL (7.4-10.4); NEUT# 11.99 X1000 (1.4-6.5); PLT 524 X1000 (130-400); RBC 3.86 XMIL (4.7-6.1); RDW 13.8 % (11.5-14.5); WBC 13.47 X1000 (4.8-10.8)
[2019-04-07 07:33] LABS: AGAP 17; BUN 29 mg/dL (8-22); CHLORIDE 103 mmol/L (98-107); COSMO 298; ESTIMATED GFR > 60; GLUCOSE 262 mg/dL (70-104); POTASSIUM 4.4 mmol/L (3.5-5.1); SODIUM 142 mmol/L (136-145); TCO2 22 mmol/L (25-35)
[2019-04-07 07:48] LABS: LYMPHS 2 % (21-51); MONO 8 % (1-9); SEGS 90 % (42-75)
[2019-04-07] MEDS: LASIX PO SCH (10:30)
[2019-04-07] MEDS: PERIDEX MT SCH ×2 (10:30→20:32)
[2019-04-07] MEDS: IMDUR PO SCH (10:54)
[2019-04-07] MEDS: KLOR-CON PO SCH ×2 (10:54→20:32)
[2019-04-07] MEDS: ASPIRIN EC PO SCH (10:55)
[2019-04-07] MEDS: LEXAPRO PO SCH (10:55)
[2019-04-07] MEDS: ALDACTONE PO SCH (10:55)
[2019-04-07] MEDS: FLOMAX PO SCH (10:56)
[2019-04-07] MEDS: COREG PO SCH ×2 (10:56→20:32)
[2019-04-07] MEDS: REGLAN PO SCH ×3 (10:56→16:40)
[2019-04-07] MEDS: HUMULIN 70/30 SUBQ SCH ×2 (11:00→22:26)
--- NOTE | 2019-04-07 13:32 | PROGRESS NOTE ---
DATE: 04/07/2019 Mr. Oliveira is now postop day 1 from a left fwjqt-ebx-hqep amputation per Dr. Escudero. He has already had his right jzbpz-kxw-xjqu amputation. The wound is dry and dressed. His knee is extended. He is awake and cooperative. He is on a clear liquid diet. We will advance his diet. He continues on vancomycin and Zosyn. We will get physical therapy to see him after the weekend. He still has a Paula catheter in mostly for keeping his wound clean and it is difficult for him to get up. His heart rate is 76, blood pressure is 134/65, he is afebrile, O2 saturation 96%. He has had recent bowel movements. His sugar ranges from 103 to 230. cc: Karin Carr MD
--- NOTE | 2019-04-07 22:15 | PROGRESS NOTE ---
DATE: 04/07/2019 SUBJECTIVE: The patient is resting comfortably in bed. He has no complaints. No acute events noted overnight. OBJECTIVE: Vital signs: Temperature 98.1 degrees, blood pressure 127/65, heart rate 75, respirations 16, O2 saturation 99% on 2 L nasal cannula.General: This is a chronically ill- appearing elderly male, lying in bed in no acute distress. Heart: S1, S2, normal. Lungs: Equal air entry bilaterally. No wheezing. No rales. Abdomen: Positive bowel sounds. Soft, nontender, nondistended. Extremities: The left BKA stump is wrapped in a clean dry dressing. Neurologic: The patient is alert and oriented x4. LABORATORY DATA: White blood cell count 13, hemoglobin 10, hematocrit 32, platelets 524,000. Sodium 142, potassium 4.4, chloride 103, CO2 is 22, BUN 29, creatinine 1, glucose 262. ASSESSMENT AND PLAN: 1. Left heel osteomyelitis with gas gangrene status post left jaxex-bap-wrni amputation. Continue with wound care and antibiotics. General Surgery and Infectious Disease are following. 2. UTI. The urine culture is growing gram positive cocci. Continue on antibiotic therapy. 3. Leukocytosis. Improved. Continue with antibiotic therapy. 4. Diabetes mellitus type 2. Continue on long-acting insulin and sliding scale insulin. 5. Benign prostatic hypertrophy. Continue on Flomax. 6. Situational depression. Continue on Lexapro. 7. Hypertension. Controlled. Continue on Coreg. 8. Deep vein thrombosis prophylaxis: The patient is a bilateral amputee. cc: Rachel Parra MD [facility]
[2019-04-08] MEDS: MORPHINE IV PRN ×3 (03:15→17:57)
[2019-04-08] MEDS: PRILOSEC PO SCH (06:00)
[2019-04-08] MEDS: ZOSYN 3.375 GM in NS 50 ML IV SCH ×4 (06:00→22:20)
[2019-04-08] MEDS: HUMALOG SUBQ SCH ×4 (06:57→22:20)
[2019-04-08 07:05] LABS: BASO# 0.03 X1000 (0.0-0.2); BASO% 0.2 % (0.0-0.8); EOS# 0.35 X1000 (0.0-0.7); EOS% 2.8 % (0.0-10.0); IMM GRAN# 0.06 X1000 (0.0-0.04); IMM GRAN% 0.5 % (0.0-0.5); LYMPH% 12.9 % (20.5-51.1); MCH 26.9 PG (27-31); MCV 86.6 FL (81-99); MONO# 1.08 X1000 (0.11-0.59); MONO% 8.7 % (1.7-9.3); MPV 9.5 FL (7.4-10.4); NEUT# 9.27 X1000 (1.4-6.5); NEUT% 74.9 % (42.2-75.2); PLT 542 X1000 (130-400); RBC 3.35 XMIL (4.7-6.1); RDW 13.9 % (11.5-14.5); WBC 12.39 X1000 (4.8-10.8)
[2019-04-08 07:38] LABS: AGAP 12; BUN 27 mg/dL (8-22); CALCIUM 8.3 mg/dL (8.8-10.2); CHLORIDE 106 mmol/L (98-107); COSMO 296; ESTIMATED GFR > 60; GLUCOSE 207 mg/dL (70-104); POTASSIUM 4.4 mmol/L (3.5-5.1); SODIUM 143 mmol/L (136-145); TCO2 25 mmol/L (25-35)
[2019-04-08] MEDS: ASPIRIN EC PO SCH (08:01)
[2019-04-08] MEDS: LEXAPRO PO SCH (08:01)
[2019-04-08] MEDS: LASIX PO SCH (08:02)
[2019-04-08] MEDS: KLOR-CON PO SCH ×2 (08:02→22:18)
[2019-04-08] MEDS: ALDACTONE PO SCH (08:02)
[2019-04-08] MEDS: FLOMAX PO SCH (08:02)
[2019-04-08] MEDS: COLACE PO SCH ×2 (08:02→22:18)
[2019-04-08] MEDS: IMDUR PO SCH (08:03)
[2019-04-08] MEDS: COREG PO SCH ×2 (08:03→22:18)
[2019-04-08] MEDS: MIRALAX PO SCH (08:03)
[2019-04-08] MEDS: PERIDEX MT SCH ×3 (08:04→22:34)
[2019-04-08] MEDS: HUMULIN 70/30 SUBQ SCH ×2 (08:05→22:19)
[2019-04-08] MEDS: REGLAN PO SCH ×3 (08:09→17:04)
--- NOTE | 2019-04-08 09:25 | PROGRESS NOTE ---
DATE: 04/08/2019 SUBJECTIVE: Mr. Cristobal Oliveira is a 58-year-old white male who recently underwent a left below- the-knee amputation per Dr. Escudero. He already has a right tomez-yeh-nogl amputation. His wound is dressed. The dressing is dry. He has good extension of his left knee. He does have a Paula catheter tube in place, and from what I understand, he was having trouble voiding, even prior to his hospitalization, and they were considering in-and-out catheterization, so I will leave his Paula catheter tube in place. Will ask Physical Therapy to evaluate him tomorrow. He still has antibiotics going, and his white blood cell count is trending towards normal daily. cc: Karin Carr MD
[2019-04-08] MEDS: VANCOMYCIN 1,800 MG in NS 500 ML IV SCH (11:20)
--- NOTE | 2019-04-08 19:02 | PROGRESS NOTE ---
DATE: 04/08/2019 SUBJECTIVE: The patient is resting comfortably in bed. He complains of pain in his BKA stump. OBJECTIVE: Vital Signs: Temperature 97 degrees, blood pressure 127/60, heart rate 66, respirations 20, O2 saturations 97% on room air. General: This is a chronically ill-appearing elderly male in no acute distress. Heart: S1, S2 normal. Regular rate and rhythm. Lungs: Equal air entry bilaterally. No wheezing. No rales. No rhonchi. Abdomen: Positive bowel sounds. Soft, nontender, nondistended. Extremities: The patient has bilateral BKAs. The left stump is wrapped in a clean, dry, Stevie bandage. Neurologic: The patient is alert and oriented x4. LABS: White blood cell count 12, hemoglobin 9, hematocrit 29, platelets 542,000. Sodium 143, potassium 4.4, chloride 106, CO2 of 25, BUN 27, creatinine 1, glucose 207. ASSESSMENT AND PLAN: 1. Left heel osteomyelitis and gas gangrene status post left pjvlq-hja-frle amputation. Continue with wound care and antibiotic therapy. Further management as per the general surgeon and Dr. Workman. 2. Urinary tract infection secondary to Enterococcus faecalis. The patient is currently on vancomycin. 3. Diabetes mellitus type 2. Continue on the current insulin regimen. 4. Benign prostatic hypertrophy. Continue on Flomax. 5. Situational depression. Continue on Lexapro. 6. Hypertension. Controlled. Continue on Coreg. cc: Rachel Parra MD
[2019-04-08] MEDS: NORCO-7.5 PO PRN (22:19)
[2019-04-09] MEDS: MORPHINE IV PRN ×4 (03:41→21:15)
[2019-04-09] MEDS: ZOSYN 3.375 GM in NS 50 ML IV SCH ×2 (04:47→11:51)
[2019-04-09] MEDS: PRILOSEC PO SCH (06:36)
[2019-04-09] MEDS: HUMALOG SUBQ SCH ×4 (06:36→21:13)
[2019-04-09] MEDS: NORCO-7.5 PO PRN (06:36)
[2019-04-09 06:38] LABS: AGAP 10; CHLORIDE 106 mmol/L (98-107); POTASSIUM 3.9 mmol/L (3.5-5.1); SODIUM 143 mmol/L (136-145); TCO2 27 mmol/L (25-35)
[2019-04-09 06:39] LABS: BUN 21 mg/dL (8-22); CALCIUM 8.4 mg/dL (8.8-10.2); COSMO 290; CREATININE 0.8 mg/dL (0.7-1.2); ESTIMATED GFR > 60; GLUCOSE 133 mg/dL (70-104)
[2019-04-09] MEDS: MIRALAX PO SCH (08:57)
[2019-04-09] MEDS: VANCOMYCIN 1,800 MG in NS 500 ML IV SCH (08:57)
[2019-04-09] MEDS: REGLAN PO SCH ×3 (08:58→16:49)
[2019-04-09] MEDS: ALDACTONE PO SCH (08:58)
[2019-04-09] MEDS: KLOR-CON PO SCH ×2 (08:58→21:12)
[2019-04-09] MEDS: PERIDEX MT SCH ×2 (08:58→21:13)
[2019-04-09] MEDS: FLOMAX PO SCH (08:58)
[2019-04-09] MEDS: COREG PO SCH ×2 (08:59→21:12)
[2019-04-09] MEDS: COLACE PO SCH ×2 (08:59→21:12)
[2019-04-09] MEDS: IMDUR PO SCH (08:59)
[2019-04-09] MEDS: LASIX PO SCH (08:59)
[2019-04-09] MEDS: ASPIRIN EC PO SCH (08:59)
[2019-04-09] MEDS: LEXAPRO PO SCH (09:00)
--- NOTE | 2019-04-09 09:08 | GENERAL SURGERY PROGRESS NOTE ---
DATE: 04/09/2019 SUBJECTIVE: The patient is feeling better. There were no acute events and there have been no acute events over the weekend. OBJECTIVE: He is afebrile. Vital signs are stable. General: He is awake, alert, and oriented x3. No acute distress. Extremities: His left BKA incision was examined. It was clean, dry, and intact. There is much less edema now in the stump. I re-dressed it at the bedside. Laboratory: None today but his azotemia has resolved and his leukocytosis has been trending towards normal over the weekend. ASSESSMENT/PLAN: A 58-year-old male postoperative day 3, left below knee amputation. Physical therapy has been consulted. His wound is healing appropriately. He can follow up with me in my office in 7 to 10 days. cc: Eduardo Escudero MD
[2019-04-09] MEDS: HUMULIN 70/30 SUBQ SCH ×2 (09:09→21:13)
[2019-04-09] MEDS ORDERED: INSULIN PEN NEEDLES ONE (09:15)
--- NOTE | 2019-04-09 10:54 | PROGRESS NOTE ---
DATE: 04/09/2019 SUBJECTIVE: The patient is sitting up, eating breakfast. He states that he has been having some pain in his stump, but otherwise has no other complaints. OBJECTIVE: Vital Signs: Temperature 97.4 degrees, blood pressure 142/82, heart rate 67, respirations 16, O2 saturation 96% on room air. General: This is a chronically ill-appearing male, lying in bed in no acute distress. Heart: S1, S2 normal. Regular rate and rhythm. Lungs: Equal air entry bilaterally. No wheezing. No rales. No rhonchi. Abdomen: Positive bowel sounds. Soft, nontender, nondistended. Extremities: The patient is a bilateral amputee. The left BKA stump is wrapped in a clean, dry, Stevie bandage. Neurologic: The patient is alert and oriented x4. LABORATORY DATA: Sodium 143, potassium 3.9, chloride 106, CO2 of 27, BUN 21, creatinine 0.8, glucose 133. ASSESSMENT AND PLAN: 1. Left heel osteomyelitis and gas gangrene status post left gseds-sxj-ffdl amputation. Continue with wound care. Further management as per the general surgeon. 2. Urinary tract infection secondary to Enterococcus faecalis. Continue with antibiotic therapy as directed by Dr. Workman. 3. Benign prostatic hypertrophy. Continue on Flomax. 4. Diabetes mellitus type 2. Continue on the current insulin regimen. 5. Situational depression. Continue on Lexapro. 6. Hypertension. Stable. Continue on Coreg. 7. Will consult Physical Therapy and Occupational Therapy. 8. Disposition. The patient is interested in inpatient rehab placement. Will consult with Chemistry Instructor. cc: Rachel Parra MD [facility]
[2019-04-09] MEDS: LEVAQUIN PO SCH (16:49)
--- NOTE | 2019-04-09 21:15 | INFECTIOUS DISEASE PROGRESS NO ---
DATE: 04/09/2019 PRESENT ILLNESS: The patient is status post left wxtdd-oar-rgrs amputation for gas gangrene and osteomyelitis involving the left foot. The patient also has an enterococcal urinary tract infection and the patient had urinary retention which required placement of a Paula catheter. MEDICATIONS: Currently, the patient is on a combination of vancomycin and Zosyn. PHYSICAL EXAMINATION: Vital Signs: Temperature is 97.5 degrees, pulse 67, respirations 16, blood pressure 142/82. General: This is a chronically ill-appearing middle-aged male. He is in no acute distress. Head, eyes, ears, nose, and throat: He can hear my spoken words and see near objects. He does not have any white coating on his tongue. Neck: No pain with movement. Lungs: Clear to auscultation. Cardiovascular: Heart rate is regular. Abdomen: Soft and nontender. Extremities: The patient has a right mrrit-zgg-ywji amputation. The incision has healed well. The patient has a large dressing on his left leg where he has had his left hcbou-vfj-smkl amputation done by Dr. Escudero. The dressing is intact. Neurologic: The patient is alert. He can move his extremities. There is no tremor. LAB AND X-RAY: There is no new radiographic study. The patient's urine grew out Enterococcus. The patient's foot grew E coli and Acinetobacter. The patient's CBC shows a white count of 12,390, hemoglobin 9, platelet count 542,000. Creatinine is 0.8. GFR is greater than 60. Urine culture grew Enterococcus. ASSESSMENT AND PLAN: I agree thoroughly with Dr. Escudero proceeding with a left pwxej-esg-mbwe amputation. I have discontinued vancomycin and Zosyn and put the patient on Levaquin which in vitro the organisms isolated from the patient are susceptible to Levaquin. COMORBIDITIES: The patient is a diabetic. cc: Sai Workman MD
[2019-04-10] MEDS: MORPHINE IV PRN ×5 (02:16→22:59)
[2019-04-10 06:22] LABS: BASO# 0.05 X1000 (0.0-0.2); BASO% 0.4 % (0.0-0.8); EOS# 0.88 X1000 (0.0-0.7); EOS% 7.8 % (0.0-10.0); HEMATOCRIT 32.9 % (42.0-52.0); HEMOGLOBIN 10.3 g/dL (14.0-18.0); IMM GRAN# 0.06 X1000 (0.0-0.04); IMM GRAN% 0.5 % (0.0-0.5); LYMPH# 1.43 X1000 (1.2-3.4); LYMPH% 12.7 % (20.5-51.1); MCH 27.2 PG (27-31); MCHC 31.3 g/dL (33-37); MCV 86.8 FL (81-99); MONO# 1.14 X1000 (0.11-0.59); MONO% 10.1 % (1.7-9.3); MPV 9.3 FL (7.4-10.4); NEUT# 7.72 X1000 (1.4-6.5); NEUT% 68.5 % (42.2-75.2); PLT 588 X1000 (130-400); RBC 3.79 XMIL (4.7-6.1); RDW 14.2 % (11.5-14.5); WBC 11.28 X1000 (4.8-10.8)
[2019-04-10] MEDS: HUMALOG SUBQ SCH ×4 (06:25→21:21)
[2019-04-10] MEDS: PRILOSEC PO SCH (06:25)
[2019-04-10 07:44] LABS: AGAP 11; BUN 14 mg/dL (8-22); CALCIUM 8.8 mg/dL (8.8-10.2); CHLORIDE 103 mmol/L (98-107); COSMO 286; CREATININE 0.7 mg/dL (0.7-1.2); ESTIMATED GFR > 60; GLUCOSE 117 mg/dL (70-104); POTASSIUM 4.7 mmol/L (3.5-5.1); SODIUM 143 mmol/L (136-145); TCO2 29 mmol/L (25-35)
[2019-04-10] MEDS: FLOMAX PO SCH (10:16)
[2019-04-10] MEDS: HUMULIN 70/30 SUBQ SCH ×2 (10:16→21:20)
[2019-04-10] MEDS: MIRALAX PO SCH (10:16)
[2019-04-10] MEDS: LEVAQUIN PO SCH (10:17)
[2019-04-10] MEDS: KLOR-CON PO SCH ×2 (10:17→21:19)
[2019-04-10] MEDS: LEXAPRO PO SCH (10:17)
[2019-04-10] MEDS: ASPIRIN EC PO SCH (10:17)
[2019-04-10] MEDS: IMDUR PO SCH (10:17)
[2019-04-10] MEDS: COLACE PO SCH ×2 (10:17→21:19)
[2019-04-10] MEDS: REGLAN PO SCH ×3 (10:17→18:41)
[2019-04-10] MEDS: PERIDEX MT SCH ×2 (10:18→21:18)
[2019-04-10] MEDS: LASIX PO SCH (10:40)
[2019-04-10] MEDS: ALDACTONE PO SCH (10:40)
[2019-04-10] MEDS: COREG PO SCH ×2 (10:40→21:19)
--- NOTE | 2019-04-10 15:37 | GENERAL SURGERY PROGRESS NOTE ---
DATE: 04/10/2019 SUBJECTIVE: The patient is doing well. He participated in physical therapy this morning. OBJECTIVE: He is afebrile. Vital signs are stable.General: He is awake, alert, oriented x3. No acute distress. Extremities: The left leg stump dressing is clean and dry. ASSESSMENT/PLAN: 58-year-old male status post left BKA. His wound is healing appropriately. He is stable for discharge to rehab from my standpoint and needs to follow up in my office on 04/18 through 04/20 for incision check. cc: Eduardo Escudero MD
[2019-04-10] MEDS: NORCO-7.5 PO PRN ×2 (15:42→21:18)
--- NOTE | 2019-04-10 18:33 | INFECTIOUS DISEASE PROGRESS NO ---
DATE: 04/10/2019 PRESENT ILLNESS: Mr. Oliveira is status post wlctm-gbc-uxek amputation for left foot osteomyelitis and gas gangrene. He also has an enterococcal urinary tract infection. MEDICATIONS: He is on day 1 of Levaquin 500 mg by mouth every 24 hours. PHYSICAL EXAMINATION: Vital Signs: Temperature is 97.6 degrees, pulse rate 80, respiratory rate 20, blood pressure 125/48, and O2 saturation is 91% on 2 L nasal cannula. General: This is a chronically ill-appearing, obese middle-aged gentleman. He is lying in the bed, currently in no acute distress. HEENT: Atraumatic, normocephalic. Oral mucous membranes are pink and moist. Conjunctivae are pink. Neck: Supple. Trachea is midline. Cardiovascular: Heart rate and rhythm are regular. Normal sinus rhythm on the monitor. Respiratory: Lung sounds are clear to auscultation bilaterally. No work of breathing is noted. Abdomen: Soft, obese, and nontender. Bowel sounds are active. Integumentary: There is a right imrex-fux-kknz amputation with an incision that is well healed, and a new left gdxqp-fim-bwhz amputation with an Stevie wrap dressing in place which is dry and intact. Neurologic: He is awake, alert, and appropriate. He is able to move his extremities in the bed with assistance. No tremors noted. LABORATORY AND X-RAY: Today, his white count is 11.28, hemoglobin 10.3, platelet count 588,000. Creatinine is 0.7. Estimated GFR is greater than 60. His left foot previously grew an E coli and an Acinetobacter, and his urine culture previously grew an enterococcus. No imaging reports today. ASSESSMENT AND PLAN: Mr. Oliveira is being treated for enterococcal urinary tract infection, as well as an Escherichia coli and Acinetobacter osteomyelitis. He is status post left below-the- knee amputation. Fortunately, oral Levaquin will cover all 3 of these organisms. His leukocytosis continues to improve, so we will continue Levaquin as ordered. These plans have been discussed with and recommended by Dr. Workman. Comorbidities for Mr. Oliveira include diabetes mellitus and coronary artery disease with bilateral wndvu-kyv-xvcq amputations. Dictated by AURELIO Ruiz for Sai Workman MD cc: Sai Workman MD
[2019-04-10] MEDS: DESYREL PO PRN (21:19)
[2019-04-11] MEDS: PRILOSEC PO SCH ×2 (05:29→07:19)
[2019-04-11 06:22] LABS: BASO# 0.03 X1000 (0.0-0.2); BASO% 0.4 % (0.0-0.8); EOS# 0.95 X1000 (0.0-0.7); HEMATOCRIT 30.2 % (42.0-52.0); HEMOGLOBIN 9.3 g/dL (14.0-18.0); IMM GRAN# 0.06 X1000 (0.0-0.04); IMM GRAN% 0.8 % (0.0-0.5); LYMPH# 1.35 X1000 (1.2-3.4); LYMPH% 18.5 % (20.5-51.1); MCHC 30.8 g/dL (33-37); MCV 87.5 FL (81-99); MONO# 0.88 X1000 (0.11-0.59); MPV 9.2 FL (7.4-10.4); NEUT# 4.04 X1000 (1.4-6.5); NEUT% 55.3 % (42.2-75.2); PLT 520 X1000 (130-400); RBC 3.45 XMIL (4.7-6.1); RDW 14.3 % (11.5-14.5); WBC 7.31 X1000 (4.8-10.8)
[2019-04-11 06:56] LABS: AGAP 7; BUN 11 mg/dL (8-22); CALCIUM 8.2 mg/dL (8.8-10.2); CHLORIDE 100 mmol/L (98-107); COSMO 275; CREATININE 0.8 mg/dL (0.7-1.2); ESTIMATED GFR > 60; GLUCOSE 96 mg/dL (70-104); POTASSIUM 4.1 mmol/L (3.5-5.1); SODIUM 138 mmol/L (136-145); TCO2 31 mmol/L (25-35)
[2019-04-11] MEDS: HUMALOG SUBQ SCH ×4 (07:19→22:18)
[2019-04-11] MEDS: PERIDEX MT SCH ×3 (08:14→21:47)
[2019-04-11] MEDS: IMDUR PO SCH (08:14)
[2019-04-11] MEDS: KLOR-CON PO SCH ×2 (08:14→21:47)
[2019-04-11] MEDS: COREG PO SCH ×2 (08:14→21:47)
[2019-04-11] MEDS: LEVAQUIN PO SCH (08:14)
[2019-04-11] MEDS: ALDACTONE PO SCH (08:14)
[2019-04-11] MEDS: ASPIRIN EC PO SCH (08:14)
[2019-04-11] MEDS: MIRALAX PO SCH (08:15)
[2019-04-11] MEDS: LEXAPRO PO SCH (08:15)
[2019-04-11] MEDS: LASIX PO SCH (08:15)
[2019-04-11] MEDS: REGLAN PO SCH ×3 (08:15→17:12)
[2019-04-11] MEDS: COLACE PO SCH ×2 (08:15→21:47)
[2019-04-11] MEDS: HUMULIN 70/30 SUBQ SCH ×2 (08:17→21:48)
[2019-04-11] MEDS: FLOMAX PO SCH (08:20)
[2019-04-11] MEDS: NORCO-7.5 PO PRN ×2 (10:14→17:12)
[2019-04-11] MEDS: MORPHINE IV PRN ×3 (11:52→21:52)
--- NOTE | 2019-04-11 15:26 | PROGRESS NOTE ---
DATE: 04/11/2019 SUBJECTIVE: Mr. Oliveira is feeling much better. His color looks better. He remains afebrile. OBJECTIVE: Vital signs: Temperature 97.6 degrees, pulse 62, respirations 18, blood pressure 129/60. HEENT: Pupils are equal and round. Lungs: Clear in all lung masters. Cardiovascular: Regular rhythm and rate without murmur or S3. Abdomen: Soft. Skin: Warm and dry. Urine output is 2700 mL. ASSESSMENT AND PLAN: 1. Status post umdsv-hvx-rcnk amputation, left foot osteomyelitis with gas gangrene. He had an enterococcal urinary tract infection. He is on Levaquin 500 mg by mouth and is doing much better. Plan is to go to [place] I think tomorrow. 2. Left kqnha-ogw-zqkc amputation. Healing appropriately and so hopefully can be discharged to rehab. 3. Urinary tract infection, Enterococcus faecalis. 4. Benign prostatic hypertrophy. On Flomax. 5. Diabetes mellitus type 2. Sugar is under good control. 6. Situational depression, improved. 7. Hypertension. 8. Continue physical therapy and occupational therapy for weakness and general deconditioning. Hope to get him to rehab tomorrow. REVIEW OF ORDERS: I do not see any change. He is on Coreg 6.25 mg p.o. q.12, aspirin 81 mg a day, Colace 100 mg b.i.d., Lexapro 20 mg a day, Lasix 40 mg a day, hydrocodone 7.5 mg q.6 hours p.r.n., Levsin 0.125 mg p.o. q.4 hours, insulin NPH 10 units subcutaneous b.i.d., isosorbide mononitrate 60 mg daily, Levaquin 500 mg p.o. daily, Imodium 2 to 4 mg p.o. q.2 hours p.r.n., Reglan 10 mg t.i.d., morphine 4 mg IV q.4 hours p.r.n., Prilosec 20 mg daily, Zofran 4 mg IV q.4 hours p.r.n., MiraLAX 17 g daily, potassium chloride 20 mEq b.i.d., spironolactone 25 mg daily, Flomax 0.4 mg a day, trazodone 50 mg p.o. q.p.m. cc: Harjeet Roberts MD
--- NOTE | 2019-04-11 21:36 | INFECTIOUS DISEASE PROGRESS NO ---
DATE: 04/11/2019 PRESENT ILLNESS: The patient is status post czusd-ngn-ueca amputation for a left foot osteomyelitis and gas gangrene. The patient also has an asymptomatic enterococcal urinary tract infection. MEDICATIONS: This is day 2 of Levaquin 500 mg daily p.o. PHYSICAL EXAMINATION: Vital Signs: Temperature is 97.6 degrees, pulse 62, respirations 18, blood pressure 126/60. General: This is a chronically ill-appearing, obese, middle-aged male. He is in no acute distress. Head, eyes, ears, nose, and throat: He can hear my spoken words and see near objects. He has poor oral hygiene. He does not have any white coating on his tongue. Neck: No pain with movement. Lungs: Clear to auscultation. Cardiovascular: Heart rate is regular. Abdomen: Soft and nontender. Extremities: The patient has a right jrgze-yjd-gwyg amputation for which the incision is well healed. The patient has also a left leg xzgow-kew-uqam amputation. There is a large dressing around the leg. The dressing is intact. Neurologic: The patient is alert. He can move his extremities. There is no tremor. LAB AND X-RAY: CBC today shows a white count of 7310, hemoglobin 9.3, platelet count 520,000. Creatinine is 0.8. GFR is greater than 60. ASSESSMENT AND PLAN: Patient is doing well following his below-knee amputations. He had a foot osteomyelitis and gas gangrene. He also had an asymptomatic enterococcal urinary tract infection. I have discontinued Levaquin after tomorrow night's dose. COMORBIDITIES: The patient has diabetes mellitus. I am signing off the patient's case. I am able to see him on an as needed basis. cc: Sai Workman MD
[2019-04-11] MEDS: DESYREL PO PRN (21:47)
[2019-04-12] MEDS: MORPHINE IV PRN ×4 (05:00→19:32)
[2019-04-12] MEDS: PRILOSEC PO SCH ×2 (05:00→07:50)
[2019-04-12] MEDS ORDERED: INSULIN PEN NEEDLES ONE (05:47)
[2019-04-12] MEDS: HUMALOG SUBQ SCH ×4 (07:50→21:09)
[2019-04-12] MEDS: IMDUR PO SCH (09:18)
[2019-04-12] MEDS: LEXAPRO PO SCH (09:18)
[2019-04-12] MEDS: ALDACTONE PO SCH (09:18)
[2019-04-12] MEDS: LASIX PO SCH (09:18)
[2019-04-12] MEDS: ASPIRIN EC PO SCH (09:18)
[2019-04-12] MEDS: LEVAQUIN PO SCH (09:19)
[2019-04-12] MEDS: COLACE PO SCH ×2 (09:19→21:15)
[2019-04-12] MEDS: KLOR-CON PO SCH ×2 (09:19→21:15)
[2019-04-12] MEDS: FLOMAX PO SCH (09:19)
[2019-04-12] MEDS: PERIDEX MT SCH ×2 (09:19→21:15)
[2019-04-12] MEDS: REGLAN PO SCH ×3 (09:19→17:35)
[2019-04-12] MEDS: HUMULIN 70/30 SUBQ SCH ×2 (09:20→21:24)
[2019-04-12] MEDS: MIRALAX PO SCH (09:20)
[2019-04-12] MEDS: COREG PO SCH ×2 (09:20→21:16)
[2019-04-12] MEDS: NORCO-7.5 PO PRN ×2 (13:26→21:14)
--- NOTE | 2019-04-12 17:53 | PROGRESS NOTE ---
DATE: 04/12/2019 SUBJECTIVE: Mr. Oliveira is feeling better today, and it sounds like he may have a rehab bed. OBJECTIVE: Vital Signs: He remains afebrile, temperature 97.6 degrees, pulse 68, respirations 18, blood pressure 134/63. HEENT: Pupils are equal and round. Lungs are clear in all lung masters. Cardiovascular: Regular rate without murmur or S3. Input/Output: Urine output is 1500 mL. ASSESSMENT AND PLAN: 1. 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 He also had an asymptomatic Enterococcal urinary tract infection. This is day 2 of Levaquin 500 mg p.o. daily. I think he is ready to go to rehab. Will try and get him ready to go tomorrow. 2. Urinary tract infection. 3. Benign prostatic hypertrophy. On Flomax. 4. Diabetes mellitus type 2, sugars well controlled. 5. Situational depression, improved. 6. Hypertension. Blood pressure well controlled. 7. Weakness and deconditioning. Continue physical therapy. I do not see any change in orders. Hope to get him to rehab tomorrow. cc: Harjeet Roberts MD
[2019-04-13] MEDS: MORPHINE IV PRN ×3 (00:51→14:11)
[2019-04-13] MEDS: NORCO-7.5 PO PRN ×2 (04:32→11:53)
[2019-04-13] MEDS: PRILOSEC PO SCH (06:27)
[2019-04-13] MEDS: HUMALOG SUBQ SCH ×2 (06:42→11:53)
--- NOTE | 2019-04-13 07:44 | DISCHARGE SUMMARY ---
ADMISSION DATE: 04/05/2019 DISCHARGE DATE: 04/13/2019 HISTORY OF PRESENT ILLNESS: This is a 58-year-old who was a patient of Dr. Cem Ye. He had a foot infection, recently admitted before back in June 2018, and then had admission again back in November 2018. He had a right [id number] amputation performed on 06/20/2019 without complication. Did have some improving renal function at that time and presented at this time with left foot infection, anaerobic smell, generalized swelling, discoloration of the heel. PAST MEDICAL HISTORY: 1. Hospitalization 06/01/2018 through 06/04/2019, diagnosed with diabetic foot ulcer on the right heel, right toe, peripheral vascular disease. 2. Diabetes mellitus type 2. 3. Esophageal stricture. 4. Diabetic neuropathy in both legs, lower extremities. 5. Coronary artery disease status post stent in 2013. PAST SURGICAL HISTORY: 1. Appendectomy. 2. Debridement surgeries. 3. Partial amputation of the left 5th toe, osteomyelitis and debridement per Dr. Thapa in the past as well. 4. Right peroneal balloon angioplasty. 5. Percutaneous right popliteal arthrectomy per Dr. Sultana. ALLERGIES: Adhesive tape. ADMISSION DIAGNOSIS: 1. Infection, osteomyelitis of left foot. Suspect he would need debridement, but it did prove that he needed an above the knee amputation. 2. Diabetes mellitus type 2, peripheral neuropathy, status post athta-lqi-ymor amputation that was done on 06/20/2019. 3. Vascular insufficiency of both legs. 4. Chronic kidney disease stage 3. Creatinine was 1.0 which is pretty good for him. 5. Chronic venous insufficiency in the legs with edema. 6. History of congestive heart failure which has been chronic. Echocardiogram done in September 2017 showed mild to moderate mitral regurgitation, mild tricuspid regurgitation. There was no aortic stenosis. Mitral valve was normal. Ejection fraction at that time 40 to 45 percent. Normal size left ventricle. 7. History of coronary artery disease. 8. Anemia, normocytic anemia. Hematocrit was 27, hemoglobin was 8. HOSPITAL COURSE: General Surgery was consulted, Dr. Eduardo Escudero. X-ray showed soft tissue gas throughout the plantar aspect of the heel and some erosion of the calcaneus and likely superficial osteomyelitis possibly gas gangrene. Infectious Disease was consulted, Dr. Sai Workman. He felt the patient had gangrenous left foot with possible gas gangrene and osteomyelitis. Also had a urinary tract infection with some urinary retention. He was put on vancomycin and Zosyn and they did a bladder scan, found he had 1500 mL of urine, so Paula catheter was placed. Surgery done on 04/06/2019, debridement of left heel which was converted to a left bcing-tib-vyru amputation which he tolerated well, improved and has remained afebrile. He was on Levaquin 500 mg p.o. daily. He had an asymptomatic enterococcal urinary tract infection. So patient felt he was ready to go to rehab at [facility] and so felt he was ready on 04/13/2019. DISCHARGE MEDICATIONS: 1. Aspirin 81 mg a day. 2. Coreg 6.25 mg q.12 hours. 3. Colace 100 mg b.i.d. 4. Lexapro 20 mg a day. 5. Lasix 40 mg a day. 6. [place] 7.5 mg q.6 hours. 7. Levsin 0.125 mg q.4 hours p.r.n. 8. He was on sliding scale insulin. 9. Imdur 60 mg daily. 10. Imodium 2 to 4 mg p.o. q.2 hours p.r.n. 11. Reglan 10 mg p.o. t.i.d. 12. Prilosec 20 mg daily. 13. MiraLAX 17 g daily. 14. Klor-Con 20 mEq p.o. b.i.d. 15. Aldactone 25 mg a day. 16. Flomax 0.4 mg a day. 17. Trazodone 50 mg at bedtime p.r.n. 18. I will put him on Levaquin 500 mg a day for another 7 days. cc: Harjeet Roberts MD
[2019-04-13] MEDS: HUMULIN 70/30 SUBQ SCH (08:07)
[2019-04-13] MEDS: FLOMAX PO SCH (08:09)
[2019-04-13] MEDS: ASPIRIN EC PO SCH (08:09)
[2019-04-13] MEDS: ALDACTONE PO SCH (08:09)
[2019-04-13] MEDS: LEXAPRO PO SCH (08:09)
[2019-04-13] MEDS: COREG PO SCH (08:09)
[2019-04-13] MEDS: KLOR-CON PO SCH (08:10)
[2019-04-13] MEDS: IMDUR PO SCH (08:10)
[2019-04-13] MEDS: LASIX PO SCH (08:10)
[2019-04-13] MEDS: REGLAN PO SCH ×2 (08:11→14:12)
[2019-04-13] MEDS: COLACE PO SCH (08:11)
[2019-04-13] MEDS: PERIDEX MT SCH (08:12)
[2019-04-13] MEDS: MIRALAX PO SCH (08:12)
[2019-04-13 11:45] VITALS: BP 122/63
== END 2019-04-13 16:00 | DRG 239 ==
LOC: SUPCPDRO → ED 11:24 → SUATTDRO 15:25 → 4N 15:25
PROVIDERS: ATTEND Emergency Medicine

== ENCOUNTER 2019-07-30 15:20 | Inpatient (IN) ==
[2019-07-30] MEDS ORDERED: LASIX IV ONE (16:12)
--- NOTE | 2019-07-30 16:37 | Diag Imaging Result Doc PS360 ---
EXAM: CHEST-PORTABLE 07/30/2019 HISTORY: CHF TECHNIQUE: Erect AP portable at 1632 COMMENT: There is cardiomegaly. There is a pleural effusion on the right and there is ill-defined alveolar opacity in the right lower lobe. These findings were not present on 04/05/2019. IMPRESSION: Right pleural effusion and pulmonary edema versus pneumonia. Electronically signed by Moody Balderrama 07/30/2019 4:35 PM
[2019-07-30 16:44] LABS: BASO# 0.08 X1000 (0.0-0.2); BASO% 1.4 % (0.0-0.8); EOS# 0.79 X1000 (0.0-0.7); EOS% 14.1 % (0.0-10.0); HEMATOCRIT 35.4 % (42.0-52.0); HEMOGLOBIN 10.9 g/dL (14.0-18.0); LYMPH# 1.03 X1000 (1.2-3.4); LYMPH% 18.4 % (20.5-51.1); MCH 26.8 PG (27-31); MCHC 30.8 g/dL (33-37); MCV 87.2 FL (81-99); MONO% 7.1 % (1.7-9.3); NEUT# 3.31 X1000 (1.4-6.5); PLT 327 X1000 (130-400); RBC 4.06 XMIL (4.7-6.1); RDW 15.2 % (11.5-14.5); WBC 5.61 X1000 (4.8-10.8)
--- NOTE | 2019-07-30 16:52 | EKG Report ---
Test Performed on : 07/30/2019 4:39:07 PM Test Reason : CHF Blood Pressure : / mmHG Vent. Rate : 075 BPM Atrial Rate : 075 BPM P-R Int : 192 ms QRS Dur : 084 ms QT Int : 396 ms P-R-T Axes : 026 009 -46 degrees QTc Int : 442 ms Normal sinus rhythm. Low voltage QRS Septal infarct , age undetermined Abnormal ECG When compared with ECG of 05-APR-2019 13:09, Septal infarct is now present Unconfirmed Result
[2019-07-30 16:55] LABS: INR 1.25; PROTIME 15.9 Seconds (11.0-16.0)
[2019-07-30 16:56] LABS: PTT 31.5 Seconds (22.3-41.8)
--- NOTE | 2019-07-30 17:09 | PROVIDER DOCUMENTATION ---
This chart was entered by Aliya Lyles Scribe, acting as scribe for Jeanne Martin MD. HPI-General Adult - General Chief Complaint: Edema Stated Complaint: scrotal swelling Time Seen by Provider: 07/30/19 15:38 Source: patient Allergies/Adverse Reactions: Patient Allergies Allergy/AdvReac Type Severity Reaction Status Date / Time adhesive tape Allergy RASH Verified 07/30/19 16:12 Bleach (Sodium Hypochlorite) Allergy RASH Verified 07/30/19 16:12 Iodinated Contrast Media AdvReac Unknown Verified 07/30/19 16:12 [IV Dye] Home Medications: Home Medication List Medication Instructions Recorded Confirmed Last Taken Type Isosorbide Mononitrate E.r. [Imdur] 60 mg PO DAILY tablet 10/28/17 04/05/19 04/05/19 09:00 Rx Omeprazole 20 mg PO ACB 04/18/18 04/05/19 04/04/19 09:00 History Potassium Chloride 20 meq PO BID 04/18/18 04/05/19 04/05/19 09:00 History Furosemide [Lasix] 40 mg PO DAILY tablet 07/06/18 04/05/19 04/05/19 Rx 80mg Spironolactone [Aldactone] 25 mg PO DAILY tablet 07/06/18 04/05/19 04/05/19 09 :00 Rx Tamsulosin [Flomax] 0.4 mg PO DAILY capsule 07/06/18 04/05/19 04/05/19 09:00 Rx Aspirin [Aspir-Low] 81 mg PO DAILY 04/05/19 04/05/19 04/05/19 History 81MG Carvedilol [Coreg] 6.25 mg PO Q12HR 04/05/19 04/05/19 04/05/19 History 6.25mg Escitalopram Oxalate [Lexapro] 1 tab PO DAILY 04/05/19 04/05/19 04/05/19 09:00 History Hyoscyamine [Levsin] 0.125 mg PO Q4H PRN PRN 04/05/19 04/05/19 Unknown History Insulin NPH Hum/Reg Insulin Hm 10 unit SQ BID 04/05/19 04/05/19 Unknown History [Relion Novolin 70-30 Vial] Loperamide HCl [Imodium A-D] 2 cap PO DIRECTED 04/05/19 04/05/19 Unknown History Metoclopramide [Reglan] 1 tab PO TID 04/05/19 04/05/19 Unknown History Prochlorperazine [Compazine] 10 mg PO Q6H PRN PRN 04/05/19 04/05/19 Unknown History Sennosides [Senna] 8.6 - 50 mg PO BID PRN PRN 04/05/19 04/05/19 Unknown History Trazodone [Desyrel] 1 tab PO QPM PRN PRN 04/05/19 04/05/19 Unknown History Zinc Oxide 16% Ointment 1 gm TOP PRN PRN 04/05/19 04/05/19 04/04/19 History [[place] Butt Paste] 1GM Chlorhexidine Gluconate [Peridex] 15 ml MT BID udc 04/13/19 Unknown Rx Docusate Sodium [Colace] 100 mg PO BID cap 04/13/19 Unknown Rx Polyethylene Glycol 3350 [Miralax] 17 gm PO DAILY powder, packet 04/13/19 Unknown Rx - History of Present Illness -Gen Adult Nature of Presenting Problems: Patient is a 59 y/o male presenting to the ED today c/o edema. Patient reports he has severe abdominal and scrotal edema. Patient reports onset of symptoms 1 week ago with worsening over the last few days. Patient reports he started taking Lasix 2 days ago and has been taking 40 mg daily. Patient reports some SOB. 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 EMS reports patient had 400 CC of urine output today per caregiver. Patient denies all other signs/symptoms. Timing: reports: still present Associated Symptoms: reports: other (edema) Similar Symptoms Previously?: No Recently seen or treated by another doctor?: No Review of Systems - Adult - REVIEW OF SYSTEMS - ADULT Constitutional: denies: chills, fever Eyes: reports: no symptoms reported Ears, Nose, Mouth & Throat: reports: no symptoms reported Cardiovascular: reports: edema. denies: chest pain Respiratory: reports: shortness of breath. denies: cough Gastrointestinal: denies: abdominal pain, diarrhea, nausea, vomiting Genitourinary: reports: no symptoms reported Musculoskeletal: reports: no symptoms reported Integumentary: reports: no symptoms reported Neurological: reports: no symptoms reported Psychiatric: reports: no symptoms reported Endocrine: reports: no symptoms reported Hematologic/Lymphatic: reports: no symptoms reported Allergic/Immunologic: reports: no symptoms reported All Other Systems: Reviewed and Negative Past History - Adult - PAST MEDICAL HISTORY-ADULT Review of Records: reports: Old Records Reviewed, Nursing Assessment Review, Medications Reviewed, Social history reviewed & non-contributory. Major Childhood Illnesses: reports: denies history Cardiovascular: reports: CAD, CHF, HTN, hyperlipidemia, [place] Respiratory: reports: denies history Gastrointestinal: reports: GERD Obstetrical/Gynecological: reports: denies history Genitourinary: reports: denies history Musculoskeletal: reports: arthritis, other (osteomyelitis) Neurological: reports: denies history Psychiatric: reports: denies history Endocrine/Immune: reports: Diabetes Other Conditions: reports: denies history - PRIOR SURGERIES/PROCEDURES Surgical/Procedure History: reports: reviewed, not pertinent, appendectomy, cardiac stent - PRIOR HOSPITALIZATIONS Prior Hospitalizations: reports: other (hx of osteomyelitis) - IMMUNIZATION STATUS Childhood Immunizations: UTD Flu Vaccine: UTD - FAMILY HISTORY Family History: diabetes, reviewed, not pertinent Physical Exam-General - PHYSICAL EXAM-ADULT Initial Vital Signs Reviewed: Yes - CONSTITUTIONAL General Appearance: appears well, alert, mild distress - EYES Eyes: PERRL/EOMI - HEAD, EARS, NOSE, MOUTH & THROAT HENMT: normocephalic/atraumatic, moist mucous membranes - NECK Neck: non-tender, full range of motion, supple - RESPIRATORY Respiratory: no respiratory distress, no accessory muscle use, crackles (in bases bilaterally), increased rate - CARDIOVASCULAR Cardiovascular: normal peripheral pulses, regular rate, rhythm, other (1+ pitting edema from lower extremities up to abdomen) - GASTROINTESTINAL (ABDOMEN) Abdominal Exam: non tender, soft, other (edema) - GENITOURINARY Male Genitalia: scrotal swelling - MUSCULOSKELETAL Extremity: other (bilateral BKA) - SKIN Integumentary: normal color, normal turgor, warm/dry - NEUROLOGIC Neurologic: grossly normal - PSYCHIATRIC Psych/Mental Status: normal mood/affect, normal thought content, normal thought process, oriented x 3 Progress - PLAN OF CARE/RESULTS Progress/Plan/Lab Results: Vital Signs - 8 hr 07/30/19 15:21 Temperature 97.8 F Pulse Rate 76 Respiratory Rate 20 Blood Pressure 205/114 O2 Sat by Pulse Oximetry 99 Patient with BNP to 12k. Needs diuresis. Spoke to Dr Monroy, content management consultant for Dr Cosby who accepted patient for admission. Wants basic orders placed. Ok tiwth floor with telemetry and 40mg IV lasix BID. Result Diagrams: 07/30/19 16:22 07/30/19 16:22 - EKG 1 Time of EKG reading by physician:: 16:42 EKG Read and Signed by:: Jeanne Martin EKG Interpretation (*Must complete 3 of following elements*): Abnormal Rate: 75 Rhythm: NSR Comments: Artifact + - XRAY 1 XRAY Study: Chest (EXAM: CHEST-PORTABLE 07/30/2019 HISTORY: CHF TECHNIQUE: Erect AP portable at 1632 COMMENT: There is cardiomegaly. There is a pleural effusion on the right and there is ill-defined alveolar opacity in the right lower lobe. These findings were not present on 04/05/2019. IMPRESSION: Right pleural effusion and pulmonary edema versus pneumonia. Electronically signed by Moody Balderrama 07/30/2019 4:35 PM) Departure - Departure Date of Disposition Decision: 07/30/19 Time of Disposition Decision: 17:52 DIAGNOSIS: Elevated troponin I level, Congestive heart failure (CHF) Disposition: ADMITTED INPATIENT 09 Certified Medical Emergency: Emergent Condition: Stable Referrals and Follow-Ups: Naila Adams MD [NON-STAFF PROVIDER] - - Critical Care Note This patient required my direct & personal management of CC.: No Attestation - Physician/ LUZ ELENA Attestation Patient care was provided by Advanced Practice Provider:: No The physician spent face to face time with patient:: Yes Advanced Practice Provider documentation review:: Supervising physician onsite and consulted in the evaluation and care of this patient. The physician did have a face to face encounter with the patient. This chart was documented by the indicated scribe, (Aliya Lyles Scribe) and accurately reflects the services I performed and decisions made by me, Jeanne Martin MD, as attested by the provider's signature.
[2019-07-30 18:05] LABS: AGAP 14; BUN 17 mg/dL (8-22); CHLORIDE 101 mmol/L (98-107); COSMO 284; CREATININE 0.9 mg/dL (0.7-1.2); GLUCOSE 95 mg/dL (70-104); POTASSIUM 4.1 mmol/L (3.5-5.1); SODIUM 142 mmol/L (136-145); TCO2 27 mmol/L (25-35)
[2019-07-30 18:06] LABS: ALB/GLOB RATIO 1.1; ALBUMIN 3.3 g/dL (3.5-5.0); ALKALINE PHOSPHATASE 162 U/L (32-122); CALCIUM 8.8 mg/dL (8.8-10.2); GOT 17 U/L (10-34); GPT 9 U/L (10-44); TOTAL BILIRUBIN 0.68 mg/dL (0.20-1.00); TOTAL PROTEIN 6.3 g/dL (6.3-8.3)
[2019-07-30] MEDS ORDERED: ZITHROMAX 500 MG/NS 500 MG/250 ML IVPB IV SCH (18:30)
[2019-07-30] MEDS: ROCEPHIN 1 GM in NS 50 ML IV SCH (18:45)
[2019-07-30] MEDS ORDERED: COMPAZINE PO PRN (18:53)
[2019-07-30] MEDS ORDERED: LEVSIN PO PRN (18:53)
[2019-07-30] MEDS ORDERED: IMODIUM PO SCH (19:00)
[2019-07-30 20:16] LABS: ALLEN TEST YES; BE 5.9 mmoll (-3.0-3.0); BLOOD TYPE ARTERIAL; HCO3-(ACT) 29.5 mmoll (20.0-26.0); METHB 0.6 % (0.0-1.5); MODALITY CANNULA; O2(CT) 14.2 mL/dL (15.0-23.0); O2HB 95.7 % (95.0-99.0); PCO2(98.6) 44 mmHg (35-45); PO2(98.6) 79 mmHg (60-100); SAMPLE BLOOD; SAO2 98.4 % (95.0-100.0); THB 10.5 g/dL (11.5-17.4); pH(98.6) 7.45 (7.35-7.45)
[2019-07-30] MEDS ORDERED: LASIX IV SCH (21:00)
[2019-07-30] MEDS: LOVENOX SUBQ SCH (22:48)
[2019-07-30] MEDS: COLACE PO SCH (22:48)
[2019-07-30] MEDS: COREG PO SCH (22:48)
[2019-07-30] MEDS: PERIDEX MT SCH (22:48)
[2019-07-30] MEDS: KLOR-CON PO SCH (22:49)
[2019-07-30] MEDS: HUMALOG SUBQ SCH (22:49)
[2019-07-31] MEDS: NORCO-5 PO PRN ×3 (03:50→22:24)
[2019-07-31] MEDS: PRILOSEC PO SCH (06:13)
[2019-07-31] MEDS: HUMALOG SUBQ SCH ×4 (06:14→20:22)
--- NOTE | 2019-07-31 06:36 | HISTORY AND PHYSICAL ---
HISTORY OF PRESENT ILLNESS: Mr. Oliveira is a 59-year-old white gentleman, a patient of Dr. Cosby, has been getting increasingly short of breath for the last 3 weeks. This morning he could not breathe and thought he had fluid retention in his extremities and some edema of the penis and he decided to come to the emergency room for further help. PAST HISTORY: About 3 years ago he had a massive heart attack. He had 2 stents placed in his coronary arteries. He is in the care of a senior clinical sas programmer. He does not know the name. He has a history of hypertension for a long time and diabetes for 25 to 30 years. His diabetes was insulin- dependent diabetes; however, lately he says that his blood sugar stays so low on account of him sticking to the diet that he does not need any insulin. He used to smoke 30 years ago. He used alcohol just socially. PAST SURGICAL HISTORY: Included bilateral below-knee amputation for diabetic neuropathy as well as ulcers and gangrene from neuropathy as well as peripheral vascular disease. One of them was performed by Dr. Maloney. He does not remember the name of the other surgeon. He had 2 stents put in the coronary artery. He had mild prostate enlargement and history of appendectomy done in the past. MEDICATIONS: He is using zinc oxide ointment on his legs, trazodone, tamsulosin, spironolactone, Compazine, KCl 10 mEq b.i.d., Lasix, polyethylene glycol, omeprazole, Reglan, Imodium, Imdur 60 mg daily, Levsin every 4 hours p.r.n., and Lasix. He used to smoke 30 years ago. Does not drink. ALLERGIES: To adhesive tapes, bleach, iodinated contrast media. REVIEW OF SYSTEMS: Other than shortness of breath, he denies having any chest pains. He has numbness in the hands. He says he has neuropathy in his hands also secondary from diabetes. 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 He lives by himself at home; however, his sister and brother live next door and look after him quite well. PHYSICAL EXAMINATION: VITAL SIGNS: Reveal temperature normal, pulse 76 per minute, respiratory rate 20 per minute, blood pressure initially was 205/114. It came down to 151/89. HEENT: Head normocephalic. Pupils PERRLA. Fundus examination not done. NECK: Supple. JVP normal. ENT examination unremarkable. There is no evidence of lymphadenopathy, thyroid enlargement, cyanosis, or clubbing. He is anemic. EXTREMITIES: He has bilateral below-knee amputation and amputation area looks well. However, there is some edema of the skin in the area. He says he gets crustations in the scar area and sometimes small ulcerations. BREAST EXAM: Normal. CHEST: Normal inspection. LUNGS: Reveal bilateral basilar rales. There is poor air entry on the right side. PMI in the 6th left intercostal space. PMI in the normal position. HEART: Sounds normal with a short systolic murmur at the apex. No gallop or rub noted. ABDOMEN: Nondistended. Hernial orifices normal. There is edema of the penis and scrotum. He has mild ascites. No organomegaly noted. Abdomen is obese. RECTAL: Deferred. CENTRAL NERVOUS SYSTEM: Higher functions normal. Cranial nerves normal. 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 Deep tendon reflexes are sluggish. Skull and spine examination normal. No cerebellar signs or signs of meningeal irritation on distal local motor exam. SKIN: Unremarkable. IMAGING: Chest x-ray shows pleural effusion on the right side. Pneumonia cannot be ruled out. LABORATORY DATA: His CBC shows normal white count, hemoglobin 10.9. INR is 1.25. His proBNP is 11,922. Troponin is slightly elevated. PLAN: We will repeat the EKG and chest x-ray in the morning as well as get an echocardiogram. Get a Cardiology consult in the morning. cc: Federico Monroy MD
--- NOTE | 2019-07-31 06:36 | HISTORY AND PHYSICAL ---
ADDENDUM: DIAGNOSES: 1. Congestive heart failure. 2. Anemia. 3. Possible pneumonia on the right side with pleural effusion. 4. Bilateral below-knee amputation. 5. Diabetic neuropathy. cc: Federico Monroy MD
[2019-07-31] MEDS ORDERED: VANCOMYCIN IV PER PHARMACY MISC SCH (07:00)
--- NOTE | 2019-07-31 07:26 | Diag Imaging Result Doc PS360 ---
EXAM: CHEST-PORTABLE INDICATION: chf TECHNIQUE: 2 views COMPARISON: 07/30/2019 FINDINGS: Right-sided pleural effusion with adjacent atelectasis and infiltrate is approximately stable. No new consolidation is identified. Cardiac silhouette is stable. IMPRESSION: Essentially stable chest. Electronically signed by Abiodun Adorno 07/31/2019 7:23 AM
--- NOTE | 2019-07-31 07:55 | EKG Report ---
Test Performed on : 07/31/2019 07:41:37 AM Test Reason : CP Blood Pressure : / mmHG Vent. Rate : 070 BPM Atrial Rate : 070 BPM P-R Int : 180 ms QRS Dur : 098 ms QT Int : 428 ms P-R-T Axes : 004 013 229 degrees QTc Int : 462 ms Normal sinus rhythm. Low voltage QRS Septal infarct (cited on or before 30-JUL-2019) Abnormal ECG When compared with ECG of 30-JUL-2019 16:39, (Unconfirmed) Nonspecific T wave abnormality no longer evident in Anterior leads Confirmed by Porfirio ROSADO, Federico ([id number]) on 07/31/2019 8:34:47 AM
[2019-07-31 08:06] LABS: AGAP 11; BUN 15 mg/dL (8-22); CALCIUM 8.5 mg/dL (8.8-10.2); CHLORIDE 99 mmol/L (98-107); COSMO 279; CREATININE 0.8 mg/dL (0.7-1.2); ESTIMATED GFR > 60; GLUCOSE 111 mg/dL (70-104); POTASSIUM 3.8 mmol/L (3.5-5.1); SODIUM 139 mmol/L (136-145); TCO2 29 mmol/L (25-35)
--- NOTE | 2019-07-31 10:17 | PROGRESS NOTE ---
DATE: 07/31/2019 The patient is a 59-year-old, white man, diabetic, post bilateral BKA, who developed progressive swelling of the scrotum and penis, and also shortness of breath over a couple of weeks. He presented to the emergency room and was found to have congestive heart failure and pneumonia. Blood cultures are growing gram-positive cocci. He is on Rocephin and vancomycin. He had good diuresis yesterday with -1500 balance. His scrotal edema has decreased but still present, 2+. He is feeling a little better. VITAL SIGNS: Temperature 98.3 degrees, heart rate 71, respirations 15, blood pressure 156/76, O2 saturation 94% on nasal oxygen at 2 L. He is having difficulty controlling his urine due to the IV Lasix and requests a Paula. This is ordered for this morning. Chest x-ray yesterday revealed right pleural effusion and pulmonary edema versus pneumonia. Repeat chest x-ray will be done tomorrow morning. cc: MD Federico Mendoza MD
[2019-07-31] MEDS: LOVENOX SUBQ SCH ×2 (11:18→20:21)
[2019-07-31] MEDS: LASIX IV SCH ×2 (11:18→20:22)
[2019-07-31] MEDS: ASPIRIN EC PO SCH (11:19)
[2019-07-31] MEDS: LEXAPRO PO SCH (11:19)
[2019-07-31] MEDS: COREG PO SCH ×3 (11:19→22:25)
[2019-07-31] MEDS: IMDUR PO SCH (11:20)
[2019-07-31] MEDS: COLACE PO SCH ×2 (11:20→20:21)
[2019-07-31] MEDS: FLOMAX PO SCH (11:20)
[2019-07-31] MEDS: ALDACTONE PO SCH (11:20)
[2019-07-31] MEDS: KLOR-CON PO SCH ×2 (11:20→20:21)
[2019-07-31] MEDS: REGLAN PO SCH ×3 (11:21→22:24)
[2019-07-31] MEDS: PERIDEX MT SCH ×2 (11:21→20:21)
[2019-07-31] MEDS: VANCOMYCIN 1,700 MG in NS 250 ML IV SCH ×2 (11:21→23:05)
[2019-07-31] MEDS: MIRALAX PO SCH (11:21)
--- NOTE | 2019-07-31 13:41 | ECHO REPORT ---
ORDER DATE: 07/30/2019 INDICATION: CHF. FINDINGS: 1. Right atrium appears normal in size. 2. There is eutb-dg-kfileyip tricuspid regurgitation with an RV systolic pressure of 65, suggesting pulmonary hypertension. 3. The right ventricle on some views appears to be enlarged with probable normal RV systolic function. 4. Trace pulmonic insufficiency. 5. Mild left atrial enlargement with a dimension of 4.4 cm. 6. No mitral valve prolapse. There does not appear to be any mitral stenosis by Doppler evaluation, although this is poor quality. Mild mitral regurgitation. 7. Normal LV size, end-diastolic dimension of 5.6 cm. Normal wall thicknesses with a posterior and interventricular septal wall thickness of 1.1 cm each. LV systolic function appears borderline normal with an estimated EF of 50%. This is an extremely difficult study with poor resolution of the endocardial borders. I do not see any obvious segmental wall motion abnormalities. 8. The aortic valve appears to have some restriction in motion, mainly of the noncoronary, mainly suggesting a possible fusion of the noncoronary and left coronary cusp. This does not demonstrate a significant gradient, though with a mean gradient of 6.6. There is mild-to- moderate aortic insufficiency. 9. The aorta appears normal on visualized segments. 10. There is suggestion of a small anterior pericardial effusion, with no evidence of tamponade physiology. cc: MD Federico Calhoun MD
[2019-07-31 13:43] LABS: URINE SOURCE CATH
[2019-07-31 13:46] LABS: BILIRUBIN URINE NEGATIVE (NEGATIVE); BLOOD URINE SMALL (NEGATIVE); COLOR STRAW; GLUCOSE URINE NEGATIVE (NEGATIVE); KETONE URINE NEGATIVE (NEGATIVE); LEUKOCYTES URINE NEGATIVE (NEGATIVE); NITRITE URINE NEGATIVE (NEGATIVE); PROTEIN URINE 30 mg/dL (NEGATIVE); SP GRAVITY URINE 1.006; TURBIDITY URINE CLEAR (CLEAR); UR EPITHELIAL CELLS <10 /HPF (<10); URINE BACTERIA NEGATIVE /HPF; URINE RBC <10 /HPF (<10); URINE WBC <10 /HPF (<10); UROBILINOGEN URINE NORMAL (NORMAL)
[2019-07-31] MEDS ORDERED: SOLU-MEDROL IV ONE (14:11)
[2019-07-31] MEDS ORDERED: BENADRYL IV ONE (14:12)
--- NOTE | 2019-07-31 15:39 | CARDIOLOGY CONSULTATION ---
DATE: 07/31/2019 REQUESTING PHYSICIAN: Dr. Cosby. INDICATION: Dyspnea and edema. HISTORY: Mr. Oliveira is a 59-year-old male with multiple medical problems, who presented to the emergency room on 07/30/2019 with complaints of increasing swelling of the lower extremities as well as swelling of the lower abdomen and scrotum. This seems to have progressed. He is also feeling increasingly more short of breath. PAST HISTORY: Extensive. He has had coronary heart disease with multiple coronary interventions. He has been diagnosed with congestive heart failure, both systolic and diastolic dysfunction in the past. He has diabetes mellitus type 2. He has severe peripheral occlusive vascular disease. He has dyslipidemia and hypertension. SURGICAL HISTORY: He has had bilateral below-knee amputation due to infection of the soft tissues of the feet and poor arterial perfusion. He has had appendectomy and neck surgery. SOCIAL HISTORY: He is . He lives by himself. He gets around on an electric chair. His [id number] goes to the house and helps him with some of his chores. He has been a smoker in the past. He quit smoking 30 years ago. He has been on disability. FAMILY HISTORY: Noncontributory. HOME MEDICATIONS: At the time of this admission included aspirin 81 mg daily, carvedilol 6.25 every 12 hours, vitamin D3, Lomotil two tablets as needed, Lexapro one tablet daily, furosemide 40 mg daily, glimepiride 1 mg daily, isosorbide mononitrate 60 daily, hydrocodone every six hours, potassium chloride, and Flomax. ALLERGIES: Are positive for iodinated contrast media and adhesive tape. REVIEW OF SYSTEMS: Positive for just feeling generally tired and having the increasing swelling. He denies having chest pains. He has been more short of breath lately, almost off of medical times. PHYSICAL EXAMINATION: Vital signs: Blood pressure 156/76, pulse 71, temperature 98.3 degrees, respirations 20. General: Appears to be older than stated age, chronically ill. Neck: Slight prominence of the jugular veins. Chest: Diminished breath sounds. The patient in the right lung with dullness to percussion. Heart: Sounds regular and rhythmic. No gallop or murmur is noted. Abdomen: Obese. No ascites. No hepatomegaly. Extremities: Showed evidence of bilateral below- knee amputation with diffuse anasarca type edema involving the lower abdomen and the legs. Neurological: He follows commands. Moves four extremities. BLOOD WORK: His sodium 139, potassium 3.8, BUN 15, creatinine 0.8. On admission, his proBNP was 11,922. Troponin was 0.099. Alkaline phosphatase 162. IMAGING: His chest x-ray showed right pleural effusion, pneumonia versus pulmonary edema. EKG shows sinus rhythm with evidence of old septal scar, low voltage, nonspecific ST change. Echocardiogram was done yesterday and it shows ejection fraction of 50% with mild mitral regurgitation. IMPRESSION: 1. Patient presenting with increasing dyspnea and swelling, possibly congestive heart failure. 2. Diabetes mellitus type 2. 3. Hypertension. 4. Coronary heart disease, previous stents. 5. Bilateral below-knee amputation. 6. Poor functional status. RECOMMENDATION: We will check a D-dimer and if positive, we may have to consider doing a CT of the pulmonary arteries. We will put him on Lasix IV if his CT of the lungs is negative. We will have to premedicate him with Solu-Medrol and Benadryl if he needs to have a CT of the pulmonary arteries. We may have to consider at some point doing a followup heart catheterization on him if his tests suggest a possibility of progression of coronary heart disease. Thank you again for the opportunity to participate in his evaluation. cc: MD Federico Holbrook MD [facility]
[2019-07-31] MEDS: ROCEPHIN 1 GM in NS 50 ML IV SCH (16:45)
[2019-07-31] MEDS: ZANAFLEX PO SCH (22:24)
[2019-08-01] MEDS: NORCO-5 PO PRN ×4 (03:15→22:08)
[2019-08-01] MEDS: ZANAFLEX PO SCH ×3 (04:31→21:52)
--- NOTE | 2019-08-01 05:52 | Diag Imaging Result Doc PS360 ---
EXAM: CHEST-PORTABLE HISTORY: pneumonia TECHNIQUE: Single view COMPARISON: 07/31/2019 FINDINGS: There is a small to moderate-sized right pleural effusion with a small left pleural effusion. Pulmonary edema persists. There is atelectasis in the right base. Mild cardiomegaly. IMPRESSION: No interval improvement Electronically signed by Iban Cortes 08/01/2019 5:50 AM
[2019-08-01] MEDS: PRILOSEC PO SCH (06:21)
[2019-08-01] MEDS: HUMALOG SUBQ SCH ×4 (06:44→21:54)
[2019-08-01] MEDS: ALDACTONE PO SCH (08:04)
[2019-08-01] MEDS: ASPIRIN EC PO SCH (08:04)
[2019-08-01] MEDS: IMDUR PO SCH (08:04)
[2019-08-01] MEDS: PERIDEX MT SCH ×2 (08:04→21:52)
[2019-08-01] MEDS: REGLAN PO SCH ×3 (08:04→16:36)
[2019-08-01] MEDS: COLACE PO SCH ×2 (08:04→21:52)
[2019-08-01] MEDS: COREG PO SCH ×2 (08:04→21:52)
[2019-08-01] MEDS: LEXAPRO PO SCH (08:04)
[2019-08-01] MEDS: LASIX IV SCH ×2 (08:04→21:53)
[2019-08-01] MEDS: LOVENOX SUBQ SCH (08:04)
[2019-08-01] MEDS: FLOMAX PO SCH (08:05)
[2019-08-01] MEDS: MIRALAX PO SCH (08:05)
[2019-08-01] MEDS: KLOR-CON PO SCH ×2 (08:05→21:52)
--- NOTE | 2019-08-01 09:57 | PROGRESS NOTE ---
DATE: 08/01/2019 Vital signs stable with temperature 97.8 degrees, heart rate 75, respirations 19, blood pressure 160/88, O2 saturation on 2 liters nasal oxygen 96%. Chest x-ray is basically unchanged with persistent moderate size right pleural effusion and small left pleural effusion. There was also evidence of pulmonary edema and atelectasis of the right base. There was mild cardiomegaly. Edema of his legs, scrotum, and penis has markedly improved. Lungs are clear to auscultation. PLAN: Continue intravenous antibiotics with vancomycin and Rocephin. Lab will be rechecked tomorrow morning. cc: MD Federico Mendoza MD
[2019-08-01] MEDS ORDERED: LOVENOX SUBQ ONE (10:30)
[2019-08-01] MEDS: VANCOMYCIN 1,700 MG in NS 250 ML IV SCH (10:55)
--- NOTE | 2019-08-01 10:59 | CARDIOLOGY PROGRESS NOTE ---
DATE: 08/01/2019 SUBJECTIVE: Mr. Oliveira reports he is still short of breath. It has improved significantly since yesterday. PHYSICAL EXAMINATION: Vital Signs: He is afebrile. Heart rate 75. His blood pressure is 160/88. It continues to be elevated primarily in the 140s to 170s. His I's and O's have been negative around 3.5 L. General: He is in no acute distress. Cardiovascular: He sounds to be in a regular rate and rhythm. I do not hear any obvious murmurs. Chest exam: Clear bilaterally. He has no increased work of breathing. Abdomen: Soft, nontender. PERTINENT DATA: His chest x-ray shows a small to moderate-sized right pleural effusion, small left pleural effusion. Continued pulmonary edema. His laboratory data: There is none back today. ASSESSMENT: Mr. Oliveira is a 59-year-old gentleman, who presents with shortness of breath, appears to be in a congestive heart failure exacerbation. PLAN: We still do not have a functioning CT scanner over here. Given that, I will increase his Lovenox to 1 mg/kg subcutaneous b.i.d. We will continue to diurese the patient. I will add in some amlodipine at 5 mg daily to try to reduce his blood pressure. cc: MD Federico Calhoun MD
[2019-08-01] MEDS ORDERED: SOLU-MEDROL IV ONE (16:38)
[2019-08-01] MEDS ORDERED: BENADRYL IV ONE (16:39)
[2019-08-01] MEDS: ROCEPHIN 1 GM in NS 50 ML IV SCH (17:02)
--- NOTE | 2019-08-01 19:08 | Diag Imaging Result Doc PS360 ---
EXAM: CT ANGIOGRM PULMONARY ARTERIES HISTORY: SOB/HI D-D TECHNIQUE: CT chest with intravenous contrast. Pulmonary arterial protocol with MIP images. COMPARISON: None. FINDINGS: There is a moderate to large right-sided pleural effusion measuring 7.5 cm posteriorly and inferiorly in the midline with a smaller left pleural effusion measuring 2.4 cm. No cardiomegaly. No aortic aneurysm or dissection. Normal opacification of the pulmonary arteries and their proximal branches. There are small mediastinal lymph nodes. There calcified mediastinal and left hilar lymph nodes with scattered granuloma. Prominent coronary artery calcifications in the left anterior descending artery. There is lower lobe atelectasis. No consolidation. Mild emphysema. IMPRESSION: 1.Bilateral pleural effusions 2.No pulmonary emboli This exam was performed using automated exposure control, adjustment of mA or kV according to patient size, and/or use of iterative reconstruction technique. Electronically signed by Iban Cortes 08/01/2019 7:06 PM
[2019-08-01] MEDS ORDERED: LOVENOX SUBQ SCH (21:00)
[2019-08-01] MEDS: DESYREL PO PRN (22:10)
[2019-08-01] MEDS: BOUDREAUXS BUTT PASTE TOP PRN (22:24)
[2019-08-02] MEDS: NORCO-5 PO PRN (02:16)
[2019-08-02 06:12] LABS: HEMATOCRIT 34.9 % (42.0-52.0); HEMOGLOBIN 10.8 g/dL (14.0-18.0); LYMPH# 0.34 X1000 (1.2-3.4); LYMPH% 5.8 % (20.5-51.1); MCH 26.7 PG (27-31); MCHC 30.9 g/dL (33-37); MCV 86.2 FL (81-99); MONO# 0.18 X1000 (0.11-0.59); MONO% 3.1 % (1.7-9.3); MPV 10.5 FL (7.4-10.4); NEUT# 5.31 X1000 (1.4-6.5); NEUT% 91.1 % (42.2-75.2); PLT 345 X1000 (130-400); RBC 4.05 XMIL (4.7-6.1); WBC 5.83 X1000 (4.8-10.8)
[2019-08-02] MEDS: ZANAFLEX PO SCH ×3 (06:35→21:16)
[2019-08-02] MEDS: HUMALOG SUBQ SCH ×4 (06:35→21:16)
[2019-08-02] MEDS: PRILOSEC PO SCH (06:35)
[2019-08-02 06:47] LABS: AGAP 13; BUN 25 mg/dL (8-22); CALCIUM 8.8 mg/dL (8.8-10.2); CHLORIDE 96 mmol/L (98-107); COSMO 292; CREATININE 1.1 mg/dL (0.7-1.2); ESTIMATED GFR > 60; GLUCOSE 310 mg/dL (70-104); POTASSIUM 4.4 mmol/L (3.5-5.1); SODIUM 138 mmol/L (136-145); TCO2 29 mmol/L (25-35)
[2019-08-02 07:15] LABS: LYMPHS 4 % (21-51); SEGS 96 % (42-75)
--- NOTE | 2019-08-02 07:51 | PROGRESS NOTE ---
DATE: 08/02/2019 VITAL SIGNS: Temperature 97.2 degrees, heart rate 65, respirations 16, blood pressure 141/89, O2 saturation on 2 liters nasal oxygen 100%. LABORATORY: Hemoglobin 10.8, hematocrit 34.9, white blood count 5800 with normal differential. Sodium 138, potassium 4.4, BUN 25, creatinine 1.1, glucose 310. ProBNP 28760. Pulmonary arteriogram shows persistent bilateral pleural effusions but no pulmonary emboli. SUBJECTIVE: He complains with bilateral stump pain uncontrolled with current medications. PLAN: Increase pain medication and add Zaroxolyn. cc: MD Federico Mendoza MD
[2019-08-02] MEDS: KLOR-CON PO SCH ×2 (08:36→21:15)
[2019-08-02] MEDS: PERIDEX MT SCH ×2 (08:36→21:16)
[2019-08-02] MEDS: ASPIRIN EC PO SCH (08:36)
[2019-08-02] MEDS: LEXAPRO PO SCH (08:36)
[2019-08-02] MEDS: NORVASC PO SCH (08:36)
[2019-08-02] MEDS: REGLAN PO SCH ×3 (08:37→16:58)
[2019-08-02] MEDS: MIRALAX PO SCH (08:37)
[2019-08-02] MEDS: ALDACTONE PO SCH (08:37)
[2019-08-02] MEDS: LASIX IV SCH ×2 (08:37→21:16)
[2019-08-02] MEDS: COLACE PO SCH ×2 (08:37→21:15)
[2019-08-02] MEDS: VANCOMYCIN 1,700 MG in NS 250 ML IV SCH (08:37)
[2019-08-02] MEDS: COREG PO SCH ×2 (08:37→21:16)
[2019-08-02] MEDS: FLOMAX PO SCH (08:37)
[2019-08-02] MEDS: IMDUR PO SCH (08:37)
[2019-08-02] MEDS: NORCO-7.5 PO PRN ×2 (08:37→17:05)
[2019-08-02] MEDS: ZAROXOLYN PO SCH (08:38)
[2019-08-02] MEDS: ROCEPHIN 1 GM in NS 50 ML IV SCH (16:59)
[2019-08-02] MEDS: COZAAR PO SCH (21:15)
[2019-08-02] MEDS: LOVENOX SUBQ SCH (21:16)
[2019-08-03] MEDS: NORCO-7.5 PO PRN ×4 (00:17→21:02)
[2019-08-03] MEDS: VANCOMYCIN 1,700 MG in NS 250 ML IV SCH ×2 (02:38→21:01)
[2019-08-03] MEDS: HUMALOG SUBQ SCH ×4 (06:29→21:24)
[2019-08-03] MEDS: PRILOSEC PO SCH (06:29)
[2019-08-03] MEDS: ZANAFLEX PO SCH ×3 (06:29→21:04)
--- NOTE | 2019-08-03 07:55 | PROGRESS NOTE ---
DATE: 08/03/2019 Vital signs: Temperature 98.7 degrees, heart rate 61, respirations 21, blood pressure 162/68, O2 saturation 100% on 2 L nasal oxygen. He continues to have moderate bilateral stump pain, partially controlled with hydrocodone. Intake and output reveals continued negative fluid balance with -2600 yesterday. Lungs are clear to auscultation. Abdomen is soft. Scrotal edema is almost completely resolved. PLAN: Chest x-ray tomorrow morning, Social Service consult for assistance with disposition. His brother had a recent stroke and he does not have anyone at home to assist in his care. Rehab might be a consideration, although he may need long-term correction placement. cc: MD Federico Mendoza MD
[2019-08-03] MEDS: COZAAR PO SCH (08:07)
[2019-08-03] MEDS: LEXAPRO PO SCH (08:07)
[2019-08-03] MEDS: NORVASC PO SCH (08:08)
[2019-08-03] MEDS: KLOR-CON PO SCH ×2 (08:08→21:04)
[2019-08-03] MEDS: PERIDEX MT SCH ×2 (08:08→21:04)
[2019-08-03] MEDS: LASIX IV SCH ×2 (08:08→21:04)
[2019-08-03] MEDS: ZAROXOLYN PO SCH (08:09)
[2019-08-03] MEDS: COLACE PO SCH ×2 (08:09→21:04)
[2019-08-03] MEDS: COREG PO SCH ×2 (08:10→21:04)
[2019-08-03] MEDS: REGLAN PO SCH ×3 (08:10→17:12)
[2019-08-03] MEDS: ASPIRIN EC PO SCH (08:10)
[2019-08-03] MEDS: ALDACTONE PO SCH (08:11)
[2019-08-03] MEDS: FLOMAX PO SCH (08:11)
[2019-08-03] MEDS: MIRALAX PO SCH (08:13)
[2019-08-03] MEDS: ISORDIL PO SCH ×3 (08:19→17:13)
[2019-08-03] MEDS: APRESOLINE PO SCH ×3 (08:35→17:12)
--- NOTE | 2019-08-03 11:24 | Extremity Venous Study ---
PROCEDURE NAME: Venous U/S Bilateral Legs - 07/31/2019 EXHIBITS MANAGER: Lila REQUESTING PHYSICIAN: ANN MARIE Massey INDICATION: Immobility status with a history of bilateral below-knee amputations and edema. EXHIBITS MANAGER NOTE: Limited exam due to the degree of edema noted. FINDINGS: Deep superficial veins were visualized. All images are somewhat limited. They appeared compressible with maintained flow and no evidence of deep or superficial thrombus. There was the edema noted bilaterally. IMPRESSION: Somewhat limited scan, but no evidence of deep or superficial venous thrombosis noted. cc: MD Joann Chiu PA Amit V. Vora, MD
--- NOTE | 2019-08-03 13:17 | CARDIOLOGY PROGRESS NOTE ---
DATE: 08/03/2019 CHIEF COMPLAINT: Shortness of breath, swelling. SUBJECTIVE: Mr. Oliveira is improving. He is less shortness of breath. He is hurting in the legs; however, overall, he is certain that he is getting better. We did a CT scan of the chest on 07/31/2019 that shows bilateral pleural effusions and no evidence of pulmonary emboli. OBJECTIVE: Blood pressure is 170/74, temperature 97.8, pulse 62, respirations 18. He is awake, alert, oriented, no distress. HEENT is unremarkable. Chest: Diminished breath sounds in the right lung. Heart sounds are regular and rhythmic. I do not hear gallop or murmur. Extremities show evidence of bilateral below knee amputation. 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 Abdomen is nontender. Neurologic: He follows commands, moves all 4 extremities. DIAGNOSTIC DATA: His blood work from yesterday was as follows: Sodium 138, potassium 4.4, BUN is 25, creatinine 1.1. IMPRESSION: 1. The patient presented with decompensated heart failure. His echocardiogram shows ejection fraction of 50%. This is systolic and diastolic heart failure. 2. Underlying coronary heart disease with previous stents. 3. Diabetes mellitus type 2 with end organ damage, severe peripheral occlusive arterial disease, status post bilateral below knee amputations. 4. Very poor functional status. 5. Hypertension. RECOMMENDATIONS: At this time, we will try to optimize his medical therapy. We have placed him on vasodilators, isosorbide dinitrate and hydralazine. We will continue angiotensin receptor madhav, losartan. He is on spironolactone and IV furosemide twice a day. The patient really needs to stay in the hospital for a few more days to achieve optimization of his volume status. We will continue to follow. We will continue to monitor his electrolytes regularly. Thank you for the opportunity to participate in his evaluation. cc: MD Federico Holbrook MD
[2019-08-03] MEDS: ROCEPHIN 1 GM in NS 50 ML IV SCH (17:12)
[2019-08-03] MEDS: BOUDREAUXS BUTT PASTE TOP PRN (21:05)
[2019-08-03] MEDS: LOVENOX SUBQ SCH (21:06)
[2019-08-03] MEDS: DESYREL PO PRN (22:59)
[2019-08-04] MEDS: NORCO-7.5 PO PRN ×4 (02:02→20:27)
[2019-08-04] MEDS: PRILOSEC PO SCH (06:23)
[2019-08-04] MEDS: ZANAFLEX PO SCH ×3 (06:23→21:55)
[2019-08-04] MEDS: HUMALOG SUBQ SCH ×4 (07:05→22:10)
[2019-08-04 07:08] LABS: AGAP 6; BUN 31 mg/dL (8-22); CHLORIDE 92 mmol/L (98-107); COSMO 281; CREATININE 1.1 mg/dL (0.7-1.2); ESTIMATED GFR > 60; GLUCOSE 147 mg/dL (70-104); MAGNESIUM 1.8 mg/dL (1.5-2.7); POTASSIUM 4.3 mmol/L (3.5-5.1); SODIUM 136 mmol/L (136-145); TCO2 38 mmol/L (25-35)
--- NOTE | 2019-08-04 08:17 | Diag Imaging Result Doc PS360 ---
EXAM: CHEST-PORTABLE 08/04/2019 HISTORY: pneumonia TECHNIQUE: AP portable upright at 0804 COMMENT: There is a pleural effusion on the right and probably also on the left. This was also present on 08/01/2019. There is interstitial pulmonary edema and possible atelectasis or pneumonia in the right lower lobe. Opacification of the right base is slightly worse than on the previous study but this may be in part due to positioning. IMPRESSION: Questionable right lower lobe pneumonia. Pleural effusions and pulmonary edema. Electronically signed by Moody Balderrama 08/04/2019 8:15 AM
[2019-08-04] MEDS: COLACE PO SCH ×2 (08:26→21:55)
[2019-08-04] MEDS: COZAAR PO SCH (08:26)
[2019-08-04] MEDS: PERIDEX MT SCH ×2 (08:26→21:55)
[2019-08-04] MEDS: LEXAPRO PO SCH (08:26)
[2019-08-04] MEDS: REGLAN PO SCH ×3 (08:26→16:52)
[2019-08-04] MEDS: ISORDIL PO SCH ×3 (08:26→16:52)
[2019-08-04] MEDS: ZAROXOLYN PO SCH (08:26)
[2019-08-04] MEDS: ALDACTONE PO SCH (08:26)
[2019-08-04] MEDS: COREG PO SCH ×2 (08:26→21:55)
[2019-08-04] MEDS: KLOR-CON PO SCH ×2 (08:27→21:54)
[2019-08-04] MEDS: MIRALAX PO SCH (08:27)
[2019-08-04] MEDS: FLOMAX PO SCH (08:27)
[2019-08-04] MEDS: LASIX IV SCH ×2 (08:27→21:55)
[2019-08-04] MEDS: APRESOLINE PO SCH ×3 (08:27→16:52)
[2019-08-04] MEDS: NORVASC PO SCH (08:27)
[2019-08-04] MEDS: ASPIRIN EC PO SCH (08:33)
--- NOTE | 2019-08-04 09:27 | PROGRESS NOTE ---
DATE: 08/04/2019 VITAL SIGNS: Temperature 97.6 degrees, heart rate 66, respiration 20, blood pressure 152/71, O2 saturation on 2 liters nasal oxygen 100%. X-RAYS: Chest x-ray is basically unchanged with persistent haziness at the right base and pleural effusion. There is some fibrosis in both lungs. Clinically, he is improved. LABORATORY: Sodium 136, potassium 4.3. BUN 31, creatinine 1.1. Blood sugar 142. Calcium 9.0, magnesium 1.8. The patient is eating fairly well. DISPOSITION: At this time is uncertain. The patient will not have assistance at home. He needs 24/ care and assistance. PLAN: Continue IV medications until tomorrow then change to p.o. Hopefully disposition can be made early next week. cc: MD Federico Mendoza MD
[2019-08-04] MEDS: VANCOMYCIN 1,700 MG in NS 250 ML IV SCH (15:26)
--- NOTE | 2019-08-04 15:39 | CARDIOLOGY PROGRESS NOTE ---
DATE: 08/04/2019 SUBJECTIVE: Mr. Oliveira reports he is doing well. He has no shortness of breath, no pain complaints. PHYSICAL: He is afebrile, heart rate 68, blood pressure 133/69. His I's and O's continue to be significantly negative.Cardiovascular: He is in a regular rate and rhythm. He has no murmurs. He has no S3. He has bilateral ovxmp-xfy-zcho amputations. His chest exam is clear bilaterally. He has no increased work of breathing. Abdomen: Soft, nontender. PERTINENT DATA: Sodium 136, potassium 4.3, BUN 31, creatinine is 1.1, his proBNP on the 2nd was 22,000. ASSESSMENT: Mr. Oliveira is a 59-year-old gentleman with compensated heart failure. PLAN: I have escalated his hydralazine to 50 t.i.d., continue on ISDN and losartan as well as carvedilol. cc: MD Federico Calhoun MD
[2019-08-04] MEDS: ROCEPHIN 1 GM in NS 50 ML IV SCH (16:52)
[2019-08-04] MEDS: LOVENOX SUBQ SCH (22:17)
[2019-08-04] MEDS: DESYREL PO PRN (23:15)
[2019-08-05] MEDS: NORCO-7.5 PO PRN ×5 (00:50→20:17)
[2019-08-05] MEDS: HUMALOG SUBQ SCH ×4 (06:17→20:57)
[2019-08-05] MEDS: ZANAFLEX PO SCH ×3 (06:27→20:57)
[2019-08-05] MEDS: PRILOSEC PO SCH (06:27)
[2019-08-05 07:13] LABS: AGAP 8; BUN 30 mg/dL (8-22); CALCIUM 8.8 mg/dL (8.8-10.2); CHLORIDE 94 mmol/L (98-107); COSMO 284; CREATININE 1.2 mg/dL (0.7-1.2); ESTIMATED GFR > 60; GLUCOSE 168 mg/dL (70-104); MAGNESIUM 1.9 mg/dL (1.5-2.7); POTASSIUM 4.2 mmol/L (3.5-5.1); SODIUM 137 mmol/L (136-145); TCO2 35 mmol/L (25-35)
[2019-08-05] MEDS: ZAROXOLYN PO SCH ×2 (07:44→09:23)
[2019-08-05] MEDS: FLOMAX PO SCH ×2 (07:45→09:20)
[2019-08-05] MEDS: NORVASC PO SCH ×2 (07:45→09:22)
[2019-08-05] MEDS: LEXAPRO PO SCH ×2 (07:45→09:21)
[2019-08-05] MEDS: REGLAN PO SCH ×4 (07:45→16:49)
[2019-08-05] MEDS: COREG PO SCH ×3 (07:46→20:58)
[2019-08-05] MEDS: APRESOLINE PO SCH ×4 (07:46→16:49)
[2019-08-05] MEDS: COZAAR PO SCH ×2 (07:46→09:20)
[2019-08-05] MEDS: KLOR-CON PO SCH ×3 (07:46→20:58)
[2019-08-05] MEDS: ISORDIL PO SCH ×4 (07:46→16:49)
[2019-08-05] MEDS: ALDACTONE PO SCH ×2 (07:46→09:19)
[2019-08-05] MEDS: LASIX IV SCH ×3 (07:46→20:57)
[2019-08-05] MEDS: PERIDEX MT SCH ×3 (07:46→20:57)
[2019-08-05] MEDS: ASPIRIN EC PO SCH (08:01)
[2019-08-05] MEDS: COLACE PO SCH ×2 (09:19→20:57)
[2019-08-05] MEDS: MIRALAX PO SCH (09:21)
--- NOTE | 2019-08-05 09:41 | PROGRESS NOTE ---
DATE: 08/05/2019 VITAL SIGNS: Stable with temperature 97.7 degrees, heart rate 62, respirations 20, blood pressure 140/63, O2 saturation on 2 liters nasal oxygen 100%. SUBJECTIVE: The patient is clinically improved with less shortness of breath. LABORATORY DATA: Sodium 137, potassium 4.2, BUN 30, creatinine 1.2, glucose 168, calcium 8.8. Magnesium 1.9. OBJECTIVE: Lungs: Clear to auscultation. Extremities: There is no edema of his stumps. PLAN: Disposition early in the week with Social Service assistance. There is limited help at home. cc: MD Federico Mendoza MD
[2019-08-05] MEDS: VANCOMYCIN 1,700 MG in NS 250 ML IV SCH (10:17)
[2019-08-05] MEDS: ROCEPHIN 1 GM in NS 50 ML IV SCH (16:49)
[2019-08-05] MEDS: LOVENOX SUBQ SCH (20:58)
[2019-08-06] MEDS: NORCO-7.5 PO PRN ×5 (00:35→21:20)
[2019-08-06] MEDS: PRILOSEC PO SCH (06:12)
[2019-08-06] MEDS: ZANAFLEX PO SCH ×3 (06:12→21:20)
[2019-08-06] MEDS: HUMALOG SUBQ SCH ×4 (06:14→21:10)
[2019-08-06 07:12] LABS: AGAP 13; BUN 30 mg/dL (8-22); CALCIUM 9.1 mg/dL (8.8-10.2); CHLORIDE 92 mmol/L (98-107); COSMO 289; CREATININE 1.1 mg/dL (0.7-1.2); ESTIMATED GFR > 60; GLUCOSE 166 mg/dL (70-104); MAGNESIUM 1.9 mg/dL (1.5-2.7); SODIUM 140 mmol/L (136-145); TCO2 35 mmol/L (25-35)
--- NOTE | 2019-08-06 07:59 | CARDIOLOGY PROGRESS NOTE ---
DATE: 08/06/2019 REASON FOR CONSULTATION: Shortness of breath, swelling. CHIEF COMPLAINT: Weakness, shortness of breath. SUBJECTIVE: Mr. Oliveira continues to improve. He is less swollen. He has no major complaints. He is breathing comfortably. OBJECTIVE: Temperature is 98.9, pulse 58, respirations 16, blood pressure 143/84. The patient is awake, alert, in no distress. Neck veins are not distended. Chest sounds clear to auscultation and percussion. Heart sounds are regular and rhythmic. I do not hear any obvious gallop or murmur. Abdomen is nontender, soft. No masses. No hepatomegaly. Extremities showed less obvious edema. Neurologic: Follows commands. Moves all 4 extremities. DIAGNOSTIC DATA: Sodium is 140, potassium 4.0, BUN is 30, creatinine 1.1. IMPRESSION: 1. The patient presented with decompensated systolic and diastolic heart failure. This has improved. 2. The patient probably has chronic kidney disease. 3. Diabetes mellitus type 2 with end organ damage with severe peripheral occlusive disease, status post bilateral below knee amputation. 4. History of severe coronary heart disease with previous stents. 5. Hypertension. 6. The patient is basically bed bound, very poor functional status, unable to wear prosthesis. RECOMMENDATIONS: At this time, I think the patient has probably achieved relative euvolemia. A ProBNP level has been requested for today. Depending on that and if he can continue taking his present medications, he could probably be discharged home. The point that I would emphasize is that he probably needs to be kept on equivalent doses of Lasix, I would suggest 60 mg twice daily plus spironolactone 25 mg daily to optimize his electrolytes and continue all the other medications as usual. We will arrange for followup with his primary histologist. cc: MD Federico Holbrook MD
--- NOTE | 2019-08-06 08:17 | PROGRESS NOTE ---
DATE: 08/06/2019 VITAL SIGNS: Temperature 97.8 degrees, heart rate 64, respirations 14, blood pressure 113/80, O2 saturation on nasal oxygen of 99%. PHYSICAL EXAMINATION: Chest is clear to auscultation. Abdomen is soft. His edema has resolved. LABORATORY DATA: This morning, sodium 140, potassium 4.0, BUN 30, creatinine 1.1, blood sugar 166. ProBNP 8119. Patient's Clostridium antigen was positive but toxin was negative. His BM had a bad odor a few days ago. He is not having any diarrhea. Current antibiotic is Rocephin. He will be changed to p.o. medication. Social service is working on disposition. He probably needs rehab. cc: MD Federico Mendoza MD
[2019-08-06] MEDS: LEXAPRO PO SCH (08:21)
[2019-08-06] MEDS: ALDACTONE PO SCH (08:22)
[2019-08-06] MEDS: FLOMAX PO SCH (08:22)
[2019-08-06] MEDS: COZAAR PO SCH (08:22)
[2019-08-06] MEDS: COLACE PO SCH ×2 (08:23→21:20)
[2019-08-06] MEDS: ZAROXOLYN PO SCH (08:23)
[2019-08-06] MEDS: COREG PO SCH ×2 (08:24→21:20)
[2019-08-06] MEDS: ISORDIL PO SCH ×3 (08:24→16:50)
[2019-08-06] MEDS: KLOR-CON PO SCH ×2 (08:25→21:19)
[2019-08-06] MEDS: APRESOLINE PO SCH ×3 (08:25→16:50)
[2019-08-06] MEDS: NORVASC PO SCH (08:25)
[2019-08-06] MEDS: ASPIRIN EC PO SCH (08:26)
[2019-08-06] MEDS: PERIDEX MT SCH ×2 (08:26→21:21)
[2019-08-06] MEDS: MIRALAX PO SCH (08:26)
[2019-08-06] MEDS: REGLAN PO SCH ×3 (08:27→16:50)
[2019-08-06] MEDS: LASIX PO SCH ×2 (10:57→21:20)
[2019-08-06] MEDS: LOVENOX SUBQ SCH (21:20)
[2019-08-07] MEDS: DESYREL PO PRN (00:27)
[2019-08-07] MEDS: NORCO-7.5 PO PRN ×4 (03:20→20:00)
[2019-08-07] MEDS: PRILOSEC PO SCH (06:04)
[2019-08-07] MEDS: ZANAFLEX PO SCH ×3 (06:04→20:00)
[2019-08-07] MEDS: HUMALOG SUBQ SCH ×4 (06:28→22:27)
[2019-08-07] MEDS ORDERED: XARELTO PO ONE (08:05)
[2019-08-07] MEDS: COREG PO SCH ×2 (08:44→20:00)
[2019-08-07] MEDS: COZAAR PO SCH (08:44)
[2019-08-07] MEDS: LEXAPRO PO SCH (08:44)
[2019-08-07] MEDS: LASIX PO SCH ×2 (08:44→20:00)
[2019-08-07] MEDS: ASPIRIN EC PO SCH (08:45)
[2019-08-07] MEDS: ALDACTONE PO SCH (08:45)
[2019-08-07] MEDS: ISORDIL PO SCH ×3 (08:45→17:31)
[2019-08-07] MEDS: REGLAN PO SCH ×3 (08:45→17:31)
[2019-08-07] MEDS: APRESOLINE PO SCH ×3 (08:45→17:31)
[2019-08-07] MEDS: ZAROXOLYN PO SCH (08:45)
[2019-08-07] MEDS: FLOMAX PO SCH (08:45)
[2019-08-07] MEDS: DOXYCYCLINE PO SCH ×2 (08:45→20:00)
[2019-08-07] MEDS: KLOR-CON PO SCH ×2 (08:45→20:00)
[2019-08-07] MEDS: NORVASC PO SCH (08:45)
[2019-08-07] MEDS: DIFICID PO SCH ×2 (08:46→20:00)
[2019-08-07] MEDS: MIRALAX PO SCH (08:46)
[2019-08-07] MEDS: COLACE PO SCH ×2 (08:46→20:04)
[2019-08-07] MEDS: PERIDEX MT SCH ×2 (08:46→20:01)
[2019-08-07] MEDS ORDERED: VANCOMYCIN 1,500 MG in NS 250 ML IV SCH (10:00)
--- NOTE | 2019-08-07 10:38 | PROGRESS NOTE ---
DATE: 08/07/2019 Vital Signs: Temperature 98.4 degrees, heart rate 65, respirations 20, blood pressure 128/58, and O2 saturation on 2 liters nasal oxygen 97%. Laboratory: Sugar 117 this morning. C. Diff antigen was positive. He has had several stools since yesterday. PLAN: IV antibiotics, vancomycin, is changed to doxycycline. He is placed on Dificid 200 mg b.i.d. for C. Diff. Rehab is probably his best option for discharge. cc: MD Federico Mendoza MD
--- NOTE | 2019-08-07 15:02 | CARDIOLOGY PROGRESS NOTE ---
DATE: 08/07/2019 CHIEF COMPLAINT: Weakness, shortness of breath, and swelling. SUBJECTIVE: Mr. Oliveira, overall, seems to be doing better. I had overlooked the fact that he did show a positive blood culture for Enterococcus faecalis, which is sensitive to ampicillin, vancomycin, and penicillin. This germ usually arises from biliary tract. The patient stated that he still has his gallbladder. The patient, generally, is doing better. He is breathing more comfortably. OBJECTIVE: Blood pressure is 111/57, temperature is 97.7, pulse 66, respirations 18. He is awake and alert, in no distress. HEENT unremarkable. Chest sounds clear to auscultation and percussion. Heart sounds are regular and rhythmic. Abdomen is distended, nontender. Extremities show no edema. Neurological exam: Follows commands. Moves four extremities. LABORATORY DATA: From yesterday showed sodium of 140, potassium 4.0, BUN 30, creatinine 1.1. IMPRESSION: 1. The patient, who presented with decompensated heart failure, systolic and diastolic. 2. Chronic kidney disease. 3. Diabetes mellitus type 2. 4. Positive blood culture for Enterococcus faecalis. 5. History of severe coronary heart disease with previous stents. 6. Hypertension. RECOMMENDATIONS: I would request a followup chest x-ray, a basic metabolic profile, and we will order an ultrasound of the abdomen, specifically looking for the gallbladder because there is possibility that he may have chronic cholecystitis. The patient is diabetic, has been obese, and has vascular disease and he could potentially have a necrotic gallbladder without even knowing about it. Further advice will be forthcoming. cc: MD Federico Holbrook MD
--- NOTE | 2019-08-07 16:14 | Diag Imaging Result Doc PS360 ---
EXAM: US ABDOMEN-COMPLETE 08/07/2019 HISTORY: evaluate cholecystitis TECHNIQUE: Abdominal ultrasound COMMENT: The pancreatic head is normal in appearance the remainder is obscured. The liver is unremarkable. There is a right pleural effusion. The visualized portions of the aorta and inferior vena cava are within normal limits. There are small stones layering dependently in the gallbladder. There is no sonographic Alvarez sign. There is no evidence of biliary dilatation. The common bile duct measures less than 4 mm. There is antegrade flow in the portal vein. The kidneys are without evidence of hydronephrosis or mass. The spleen is not enlarged but contains numerous granulomata. IMPRESSION: Cholelithiasis. No evidence of acute cholecystitis. Electronically signed by Moody Balderrama 08/07/2019 4:11 PM
[2019-08-08] MEDS: HUMALOG SUBQ SCH ×4 (06:02→21:27)
[2019-08-08 06:58] LABS: ALB/GLOB RATIO 1.3; ALBUMIN 3.5 g/dL (3.5-5.0); C REACTIVE PROT QUANT 9.49 mg/L (0.00-5.00); CREATININE 1.5 mg/dL (0.7-1.2); MAGNESIUM 1.9 mg/dL (1.5-2.7); POTASSIUM 5.2 mmol/L (3.5-5.1); TOTAL BILIRUBIN 0.4 mg/dL (0.20-1.00); TOTAL PROTEIN 6.1 g/dL (6.3-8.3)
[2019-08-08] MEDS: MIRALAX PO SCH (09:36)
[2019-08-08] MEDS: LEXAPRO PO SCH (09:37)
[2019-08-08] MEDS: ZAROXOLYN PO SCH (09:37)
[2019-08-08] MEDS: PERIDEX MT SCH ×2 (09:37→21:29)
[2019-08-08] MEDS: REGLAN PO SCH ×3 (09:37→17:00)
[2019-08-08] MEDS: LASIX PO SCH ×2 (09:37→21:29)
[2019-08-08] MEDS: DIFICID PO SCH ×2 (09:37→21:29)
[2019-08-08] MEDS: NORCO-7.5 PO PRN ×4 (09:37→23:51)
[2019-08-08] MEDS: COZAAR PO SCH (09:38)
[2019-08-08] MEDS: COREG PO SCH ×2 (09:38→21:29)
[2019-08-08] MEDS: ALDACTONE PO SCH (09:38)
[2019-08-08] MEDS: ASPIRIN EC PO SCH (09:38)
[2019-08-08] MEDS: ISORDIL PO SCH ×4 (09:38→17:00)
[2019-08-08] MEDS: FLOMAX PO SCH (09:38)
[2019-08-08] MEDS: APRESOLINE PO SCH ×3 (09:38→17:00)
[2019-08-08] MEDS: DOXYCYCLINE PO SCH ×2 (09:38→21:29)
[2019-08-08] MEDS: COLACE PO SCH ×2 (09:38→21:29)
[2019-08-08] MEDS: ZANAFLEX PO SCH ×3 (09:38→21:29)
[2019-08-08] MEDS: NORVASC PO SCH (09:38)
--- NOTE | 2019-08-08 09:51 | Diag Imaging Result Doc PS360 ---
EXAM: HIDA SCAN W/ EJECTION FRACTION 08/08/2019 HISTORY: cholelithiasis TECHNIQUE: Hepatobiliary scan, 3.2 mCi of technetium 99m Choletec with ejection fraction COMMENT: There is activity in the gallbladder by four minutes. There is activity in the small bowel by 21 minutes. Following fatty meal administration there is essentially no contraction of the gallbladder. IMPRESSION: No evidence of acute cholecystitis, the possibility of chronic cholecystitis cannot be excluded. Electronically signed by Moody Balderrama 08/08/2019 9:49 AM
--- NOTE | 2019-08-08 09:54 | PROGRESS NOTE ---
DATE: 08/08/2019 OBJECTIVE: Vital signs: Temperature 98.1 degrees, heart rate 64, respiration 18, blood pressure 122/55, and O2 saturation 100% on 2 liters nasal oxygen. LABORATORY: Sodium 138, potassium 5.2, BUN 45, creatinine 1.5, glucose 134, alkaline phosphatase 138. C-reactive protein 9.5, total protein 6.1. PLAN: HIDA scan is ordered by Dr. Munoz. Also, a chest x-ray was ordered for this morning. He had 1 soft BM yesterday. He was started on Dificid for Clostridium difficile yesterday. He does not seem to be symptomatic from this. Hopefully, this can be discontinued after about 1 week. The patient is almost ready for discharge. He desires to go home instead of rehab, but has minimal help at home. Decision will be made hopefully by tomorrow related to disposition. cc: MD Federico Mendoza MD
[2019-08-08] MEDS: PRILOSEC PO SCH (10:17)
[2019-08-08] MEDS: KLOR-CON PO SCH (10:22)
--- NOTE | 2019-08-08 10:50 | Diag Imaging Result Doc PS360 ---
EXAM: CHEST-2 VIEWS 08/08/2019 HISTORY: hypoxia TECHNIQUE: PA and lateral chest COMMENT: there is atelectasis in the right upper and lower lobes. Compared to 08/04/2023 fluid collection on the left and the hazy pulmonary edema have improved. IMPRESSION: Improved pulmonary edema and left pleural effusion. Electronically signed by Moody Balderrama 08/08/2019 10:48 AM
--- NOTE | 2019-08-08 19:43 | GENERAL SURGERY CONSULTATION ---
DATE: 08/08/2019 REQUESTING PHYSICIAN: Dr. Munoz. SURGEON CONSULTED: Eduardo Escudero MD REASON FOR CONSULTATION: Chronic cholecystitis. HISTORY OF PRESENT ILLNESS: This is a 59-year-old male who was admitted over a week ago with increasing shortness of breath and swelling. He was found to have decompensated heart failure and has been treated for that since admission. In the meantime, he was found also to have Enterococcus bacteremia. The source of which is unknown, possibly biliary tract in origin. An ultrasound revealed gallstones and a HIDA scan revealed no emptying of the gallbladder. The patient says he occasionally hurts on his right and left side of his abdomen. He cannot say if it is due to any food. He has had a history of nausea and vomiting with food, but currently he denies that. His breathing and shortness of breath have improved since admission. PAST MEDICAL HISTORY: Congestive heart failure both systolic and diastolic, diabetes, history of MA 3 years ago now with 2 stents placed, hypertension, history of tobacco abuse, peripheral arterial disease, and hyperlipidemia. PAST SURGICAL HISTORY: Bilateral BKA, appendectomy, coronary stents. SOCIAL HISTORY: He is and lives by himself. He quit smoking 30 years ago and used to drink alcohol socially. FAMILY HISTORY: Reviewed and noncontributory. ALLERGIES: Adhesive tape, bleach, iodinated contrast. CURRENT MEDICATIONS: [place], Norvasc, aspirin, Coreg, Peridex, Colace, doxycycline, Lexapro, Dificid, Lasix, hydralazine, Levsin, Humalog, isosorbide dinitrate, Imodium, Cozaar, Reglan, Zaroxolyn, Prilosec, MiraLAX, Compazine, Aldactone, Flomax, Zanaflex, Desyrel. REVIEW OF SYSTEMS: Ten systems reviewed and negative except as noted above. PHYSICAL EXAMINATION: Vital Signs: Temperature 98.1 degrees, pulse 66, respirations 17, blood pressure 107/47, O2 saturation 98%. General: Elderly, frail-appearing male who is also overweight, in no acute distress. HEENT: Normocephalic, atraumatic. Extraocular muscles intact. Pupils equal, round, reactive to light. Sclerae anicteric. Neck: Supple. No thyromegaly. CV: Regular rate and rhythm. Respiratory: Bilateral breath sounds. No work of breathing. GI: Soft, nondistended, mildly tender in the upper abdomen. No rebound or guarding. Extremities: No clubbing or cyanosis. There is mild edema. Skin: Warm and dry. No rash. LABORATORY: White blood cell count 5.8, hemoglobin 10.8, INR 1.25. Sodium 138, potassium 5.2, chloride 95, BUN 45, creatinine 1.5, glucose 153. IMAGING: As described above in HPI. ASSESSMENT AND PLAN: A 59-year-old male with biliary dyskinesia and cholelithiasis. He does not appear to have acute cholecystitis, but certainly likely has chronic cholecystitis. It is unclear if this was the source of his Enterococcus culture. Symptomatically, he seems mild. We will discuss with Cardiology his cardiac risk from general anesthesia and make further recommendations. cc: MD Federico Galvan MD
[2019-08-08] MEDS: DESYREL PO PRN (23:51)
[2019-08-09] MEDS: ZANAFLEX PO SCH ×3 (05:44→20:59)
[2019-08-09 06:06] LABS: BASO# 0.03 X1000 (0.0-0.2); BASO% 0.5 % (0.0-0.8); EOS# 0.84 X1000 (0.0-0.7); EOS% 15.1 % (0.0-10.0); HEMATOCRIT 34.2 % (42.0-52.0); HEMOGLOBIN 10.6 g/dL (14.0-18.0); LYMPH# 1.44 X1000 (1.2-3.4); LYMPH% 25.8 % (20.5-51.1); MCH 26.7 PG (27-31); MCV 86.1 FL (81-99); MONO# 0.76 X1000 (0.11-0.59); MONO% 13.6 % (1.7-9.3); MPV 10.4 FL (7.4-10.4); NEUT# 2.51 X1000 (1.4-6.5); PLT 339 X1000 (130-400); RBC 3.97 XMIL (4.7-6.1); RDW 14.7 % (11.5-14.5); WBC 5.58 X1000 (4.8-10.8)
[2019-08-09] MEDS: HUMALOG SUBQ SCH ×4 (06:39→20:59)
[2019-08-09] MEDS: PRILOSEC PO SCH (06:39)
[2019-08-09 06:45] LABS: CALCIUM 8.8 mg/dL (8.8-10.2); CREATININE 1.4 mg/dL (0.7-1.2); POTASSIUM 4.2 mmol/L (3.5-5.1)
[2019-08-09] MEDS: PERIDEX MT SCH ×3 (07:56→20:59)
[2019-08-09] MEDS: ZAROXOLYN PO SCH ×2 (07:57→09:24)
[2019-08-09] MEDS: DOXYCYCLINE PO SCH ×2 (07:59→20:59)
[2019-08-09] MEDS: COREG PO SCH ×2 (07:59→20:59)
[2019-08-09] MEDS: FLOMAX PO SCH (07:59)
[2019-08-09] MEDS: LASIX PO SCH ×2 (07:59→20:59)
[2019-08-09] MEDS: DIFICID PO SCH ×2 (07:59→20:59)
[2019-08-09] MEDS: LEXAPRO PO SCH (07:59)
[2019-08-09] MEDS: KLOR-CON PO SCH (07:59)
[2019-08-09] MEDS: REGLAN PO SCH ×3 (08:00→16:51)
[2019-08-09] MEDS: NORCO-7.5 PO PRN ×3 (08:00→22:26)
[2019-08-09] MEDS: ALDACTONE PO SCH (08:00)
[2019-08-09] MEDS: NORVASC PO SCH (08:00)
[2019-08-09] MEDS: APRESOLINE PO SCH ×3 (08:00→16:50)
[2019-08-09] MEDS: ISORDIL PO SCH ×3 (08:00→16:51)
[2019-08-09] MEDS: COZAAR PO SCH (08:01)
--- NOTE | 2019-08-09 08:56 | CARDIOLOGY PROGRESS NOTE ---
DATE: 08/09/2019 CHIEF COMPLAINT: Shortness of breath, swelling. SUBJECTIVE: Mr. Oliveira is doing better. We completed evaluation of his gallbladder. An abdominal ultrasound done on 02/04 showed cholelithiasis but no obvious cholecystitis, however, the HIDA scan done yesterday shows a dilated gallbladder without any contractility. The patient did have a positive blood culture for Enterococcus faecalis group D which probably has come from the biliary system. In fact, his alkaline phosphatase was elevated at the time of presentation at 162, it has come down to 138. The patient at this time feels no nausea, no vomiting, no chest pain, no dyspnea. He is feeling generally better. PHYSICAL EXAMINATION: Vital signs: Blood pressure 120/54, temperature 98.1, pulse 63, respirations 16. General: He is awake, alert, in no distress. HEENT: Normal. Chest: Clear to auscultation and percussion. Heart: Sounds are regular and rhythmic. I do not hear a gallop or murmur. Abdomen: Obese, nontender. Extremities: Showed trace edema. Neurologic exam: Follows commands, moves all 4 extremities. He is a bilateral amputee. BLOOD WORK: Sodium is 138, potassium 4.2, BUN 48, creatinine 1.4. IMPRESSION: 1. A patient with chronic systolic and diastolic heart failure. 2. Coronary heart disease. 3. Chronic cholecystitis with cholelithiasis. 4. Positive blood culture for Enterococcus faecalis. 5. History of coronary heart disease with previous stents. 6. Chronic kidney disease. 7. Hypertension. RECOMMENDATIONS: At this time, I have discussed with the patient and Dr. Cosby that probably the best next step is to remove the gallbladder. I believe that his cardiac risk is reasonable. Hopefully, they will proceed with it today. I will be glad to follow up postoperatively. At this time, I believe his risk is low to moderate and he should be able to withstand the surgery. Thank you for asking us to participate in his evaluation. cc: MD Federico Holbrook MD
[2019-08-09] MEDS: ASPIRIN EC PO SCH (09:22)
[2019-08-09] MEDS: COLACE PO SCH ×2 (09:23→20:59)
[2019-08-09] MEDS: MIRALAX PO SCH (09:25)
--- NOTE | 2019-08-09 10:02 | PROGRESS NOTE ---
DATE: 08/09/2019 VITAL SIGNS: Temperature 98.1 degrees, heart rate 66, respirations 16, blood pressure 120/54, and O2 saturation on nasal oxygen 99%. LABORATORY: Hemoglobin 10.6, hematocrit 34.2, white blood count 5600 with normal differential. BUN and creatinine were 48 and 1.5. DISCUSSION: A discussion was made with Dr. Escudero yesterday evening and decision made to proceed with laparoscopic cholecystectomy due to his likely chronic cholecystitis with cholelithiasis. The patient is agreeable. OBJECTIVE: Chest: Clear this morning. Abdomen: Soft and nontender. PLAN: Cholecystectomy. cc: MD Federico Mendoza MD
[2019-08-09] MEDS ORDERED: KEFZOL 2 GM/D5W 2 GM/50 ML IVPB IV ONE (15:00)
[2019-08-09] MEDS ORDERED: SENSORCAINE 0.5%-EPI 1:200,000 ONE (15:23)
[2019-08-09] MEDS ORDERED: SODIUM CHLORIDE 0.9% ONE (15:23)
[2019-08-09] MEDS ORDERED: LR 1,000 ML ONE (15:23)
[2019-08-09] MEDS ORDERED: FENTANYL ONE (15:24)
[2019-08-09] MEDS ORDERED: DIPRIVAN 1% ONE (15:25)
[2019-08-09] MEDS ORDERED: KEFZOL 1 GM/D5W 2 GM/100 ML IVPB ONE (15:27)
[2019-08-09] MEDS ORDERED: DECADRON ONE (16:08)
[2019-08-09] MEDS ORDERED: ZOFRAN ONE (16:08)
[2019-08-09] MEDS ORDERED: ROBINUL ONE (16:35)
[2019-08-09] MEDS ORDERED: NEOSTIGMINE ONE (16:35)
--- NOTE | 2019-08-09 16:46 | Diag Imaging Result Doc PS360 ---
EXAM: OPERATIVE CHOLANGIOGRAM 08/09/2019 HISTORY: CHRONIC CHOLECYSTITIS TECHNIQUE: Intraoperative cholangiogram. COMMENT: There are no apparent filling defects or obstructing lesions. There is contrast in the duodenum. IMPRESSION: No evidence of retained stones. Electronically signed by Moody Balderrama 08/09/2019 4:43 PM
[2019-08-09] MEDS: DILAUDID ONE ×3 (17:16→18:12)
[2019-08-09] MEDS ORDERED: LR 500 ML ONE (17:17)
--- NOTE | 2019-08-09 19:43 | GENERAL SURGERY PROGRESS NOTE ---
DATE: 08/09/2019 SUBJECTIVE: The patient denies any new complaints overnight. No nausea, vomiting, abdominal pain, chest pain, shortness of breath. OBJECTIVE: Vital signs: He is afebrile. Vital signs are stable. General: He is awake, alert and oriented x3. No acute distress. Gastrointestinal: Soft, nondistended, minimally tender in the upper abdomen. LABORATORY DATA: Reviewed. ASSESSMENT AND PLAN: A 59-year-old male with multiple medical problems and recent enterococcus bacteremia concerning for biliary origin. He has gallstones and severe biliary dyskinesia. We are proceeding with laparoscopic cholecystectomy and cholangiogram today. I have discussed the risks and benefits with him including bleeding, infection, injury to surrounding organs such as the bile duct or intestines, possibility of an open procedure, heart failure, pneumonia, MD, and other imponderables. He understands and agrees to proceed. cc: MD Federico Galvan MD
[2019-08-09] MEDS: DESYREL PO PRN (22:26)
--- NOTE | 2019-08-10 02:17 | OPERATIVE NOTE ---
PROCEDURE DATE: 08/09/2019 PREOPERATIVE DIAGNOSIS: Chronic calculous cholecystitis and biliary dyskinesia. POSTOPERATIVE DIAGNOSIS: Chronic calculous cholecystitis and biliary dyskinesia. PROCEDURE: Laparoscopic cholecystectomy with operative cholangiogram. SURGEON: Eduardo Escudero MD. ANESTHESIA: General. BLOOD LOSS: 10 mL. COMPLICATIONS: None apparent. SPECIMENS: Gallbladder. FINDINGS: The gallbladder was distended with thickened sludge, light bile and small stones. The cholangiogram revealed normal filling of the a hepatic radicles as well as distal common bile duct. There was flow of contrast into the duodenum without filling defects or stenoses. TECHNIQUE: The patient was brought to the operating room and placed supine on the table. General anesthesia was induced. He was prepped and draped in usual sterile fashion. Marcaine 0.5% with epinephrine was used to anesthetize our incisions. An 11 mm incision was made above the umbilicus. The fascia was exposed and incised sharply. Entry into the peritoneal cavity was obtained under direct vision with the Optiview device. Pneumoperitoneum was established. The camera was inserted. There was no evidence of injury to underlying structures. He was placed in reverse Trendelenburg and left rotation. Three 5 mm incision ports were placed across the epigastrium, right upper quadrant per usual routine. The dome of the gallbladder was grasped by the chemist assistant with an Allis clamp and lifted up superiorly. The triangle of [place] was dissected out with the [place] forceps and hook cautery until the critical view was obtained. The gallbladder-liver junction was seen. There were only 2 structures entering the gallbladder, the cystic duct and cystic artery. The artery was clipped proximally and distally and incised between with scissors. A clip was placed on the distal cystic duct, a ductotomy was made proximal to this with scissors. A 14-gauge Angiocath was passed through the right upper quadrant. The taut cholangiogram catheter was passed through this into the cystic duct and held in place with a clip. The cholangiogram was performed with findings as noted above. The clip, catheter, and Angiocath were removed. Two clips were placed on the proximal cystic duct, it was divided distal to these with scissors. The gallbladder was removed from the liver bed using hook cautery, obtaining hemostasis along the way. I did decompress the gallbladder with the suction bar welder and the bile inside was noted to be quite thickened and full of sludge. Once the gallbladder was removed from the liver bed, we placed it in an EndoCatch bag. I then inspected the dissection area. There was minor bloody oozing from the surface of the liver, which was controlled with cautery. I then irrigated copiously with saline, suctioned out the old blood, irrigation and bile. There was no signs of any further bleeding or bile leakage. The gallbladder and bag were brought up into the umbilical wound. The abdomen was desufflated. The ports were removed. The umbilical skin and fascia was incised superiorly for a few more mm to allow removal of the gallbladder. I then closed the umbilical fascia with 2 [id number] 0 Vicryl. The skin was closed with 4-0 subcuticular Biosyn and Steri-Strips. There were no apparent complications. He was awakened in stable condition and transferred to the recovery room cc: MD Federico Galvan MD
[2019-08-10] MEDS: NORCO-7.5 PO PRN ×3 (04:00→18:56)
[2019-08-10] MEDS: ZANAFLEX PO SCH ×3 (04:00→21:04)
[2019-08-10] MEDS: HUMALOG SUBQ SCH ×4 (06:24→21:05)
[2019-08-10] MEDS: PRILOSEC PO SCH (06:24)
--- NOTE | 2019-08-10 08:41 | EKG Report ---
Test Performed on : 08/10/2019 07:57:21 AM Test Reason : post op cholecystectomy. CAD/CHF Blood Pressure : / mmHG Vent. Rate : 066 BPM Atrial Rate : 066 BPM P-R Int : 194 ms QRS Dur : 106 ms QT Int : 436 ms P-R-T Axes : 055 006 081 degrees QTc Int : 457 ms Normal sinus rhythm. Low voltage QRS Septal infarct (cited on or before 30-JUL-2019) Abnormal ECG When compared with ECG of 31-JUL-2019 07:41, ST no longer depressed in Anterior leads Nonspecific T wave abnormality no longer evident in Inferior leads Nonspecific T wave abnormality, improved in Lateral leads Confirmed by Ish ROSADO, Clarence Vieira ([id number]) on 08/10/2019 7:03:24 PM
[2019-08-10 08:48] LABS: CALCIUM 8.3 mg/dL (8.8-10.2); MAGNESIUM 1.7 mg/dL (1.5-2.7)
[2019-08-10] MEDS: COLACE PO SCH ×2 (08:51→21:04)
[2019-08-10] MEDS: ASPIRIN EC PO SCH (08:51)
[2019-08-10] MEDS: DIFICID PO SCH ×2 (08:51→21:04)
[2019-08-10] MEDS: LASIX PO SCH ×2 (08:51→21:04)
[2019-08-10] MEDS: ALDACTONE PO SCH (08:51)
[2019-08-10] MEDS: REGLAN PO SCH ×3 (08:52→17:53)
[2019-08-10] MEDS: MIRALAX PO SCH (08:52)
[2019-08-10] MEDS: FLOMAX PO SCH (08:52)
[2019-08-10] MEDS: LEXAPRO PO SCH (08:52)
[2019-08-10] MEDS: KLOR-CON PO SCH (08:52)
[2019-08-10] MEDS: ZAROXOLYN PO SCH (08:52)
[2019-08-10] MEDS: PERIDEX MT SCH ×2 (08:52→21:04)
[2019-08-10] MEDS: DOXYCYCLINE PO SCH ×2 (08:52→21:04)
[2019-08-10] MEDS: ISORDIL PO SCH ×3 (09:06→17:42)
[2019-08-10] MEDS: COREG PO SCH ×2 (09:06→21:04)
[2019-08-10] MEDS: COZAAR PO SCH (09:06)
[2019-08-10] MEDS ORDERED: NS 500 ML IV ONE ×2 (09:48→10:15)
[2019-08-10] MEDS ORDERED: ALBUMIN 25% IV ONE (10:06)
[2019-08-10] MEDS ORDERED: NS 250 ML IV SCH (10:15)
[2019-08-10] MEDS ORDERED: NS 500 ML ONE (10:16)
[2019-08-10 10:29] LABS: BASO# 0.01 X1000 (0.0-0.2); BASO% 0.1 % (0.0-0.8); HEMATOCRIT 27.3 % (42.0-52.0); HEMOGLOBIN 8.3 g/dL (14.0-18.0); IMM GRAN# 0.03 X1000 (0.0-0.04); IMM GRAN% 0.4 % (0.0-0.5); LYMPH# 1.13 X1000 (1.2-3.4); LYMPH% 15.5 % (20.5-51.1); MCH 26.4 PG (27-31); MCHC 30.4 g/dL (33-37); MCV 86.9 FL (81-99); MONO# 0.65 X1000 (0.11-0.59); MONO% 8.9 % (1.7-9.3); MPV 10.8 FL (7.4-10.4); NEUT# 5.45 X1000 (1.4-6.5); NEUT% 75.1 % (42.2-75.2); PLT 331 X1000 (130-400); RBC 3.14 XMIL (4.7-6.1); RDW 14.6 % (11.5-14.5); WBC 7.27 X1000 (4.8-10.8)
--- NOTE | 2019-08-10 10:33 | Diag Imaging Result Doc PS360 ---
EXAM: CHEST-PORTABLE 08/10/2019 HISTORY: change in status TECHNIQUE: AP portable upright at 1018 COMMENT: Compared to the previous study of 08/08/2019 the platelike atelectasis previously present in the right upper lobe and the ill-defined opacity at the right base have improved. IMPRESSION: Improved atelectasis and/or pneumonia. Electronically signed by Moody Balderrama 08/10/2019 10:31 AM
--- NOTE | 2019-08-10 12:56 | CARDIOLOGY PROGRESS NOTE ---
DATE: 08/10/2019 CHIEF COMPLAINT: Thirst, weakness, shortness of breath. SUBJECTIVE: Mr. Oliveira underwent successful laparoscopic cholecystectomy by Dr. Escudero yesterday 08/09. He found a distended gallbladder with thickened sludge, light bile, and small stones. There was no issue with the cholangiogram. This morning, he is just feeling weak and thirsty. His blood work shows that sodium is 134, potassium is 5.0, BUN 51, creatinine 2.0. His hemoglobin is down to 8.3, it was 10.9 on admission. His platelet count is normal. OBJECTIVE: Vital signs: Blood pressure is 70/30, temperature 98.1, pulse 62, respirations 14. We have bolus'd the patient with normal saline twice and albumin, and his blood pressure now is picking up to 86/40. He is just feeling weak. HEENT: Unremarkable. Chest: Clear to auscultation and percussion. Heart: Sounds regular and rhythmic. No gallop or murmur. Abdomen: Slightly tender, distended. Incisions of recent laparoscopic procedure appear to be okay. Extremities: Showed evidence of bilateral below-knee amputation without edema. Neurologic exam: Follows commands, moves extremities. IMPRESSION: 1. A patient who is status post cholecystectomy postoperative day number 1. 2. Hypotension. This is probably due to third-spacing. 3. Systolic and diastolic heart failure. 4. History of severe coronary heart disease, previous stents. RECOMMENDATIONS: At this time, the patient may be a little bit on the dry side. We will give him some fluids. Ringer's lactate. His EKG this morning at 7:57 a.m. shows no significant abnormalities. He looks very stable. We will probably observe him overnight and if he is stable he can go home tomorrow. cc: MD Federico Holbrook MD
[2019-08-10] MEDS: LR 1,000 ML IV SCH ×2 (13:19→20:03)
--- NOTE | 2019-08-10 15:57 | GENERAL SURGERY PROGRESS NOTE ---
DATE: 08/10/2019 SUBJECTIVE: The patient is doing well. He has some mild soreness in his abdomen but no severe pain. No nausea or vomiting. OBJECTIVE: Vital Signs: He is afebrile. Vital signs are stable. General: He is awake, alert, oriented x3. No acute distress. Gastrointestinal: Soft, nontender, nondistended. Incision is clean, dry, and intact. LABORATORY: Metabolic profile reviewed and notable for BUN 51 and creatinine 2.0. ASSESSMENT AND PLAN: A 59-year-old male postoperative day 1 laparoscopic cholecystectomy. He appears to be comfortable. However, it is notable that his blood pressure this morning is in the 70s systolic. His BUN and creatinine have both risen. I think a gentle bolus is in order. We will go ahead and order that. cc: MD Federico Galvan MD
--- NOTE | 2019-08-10 18:52 | GENERAL SURGERY PROGRESS NOTE ---
DATE: 08/10/2019 SUBJECTIVE: The patient is doing well. He denies severe pain, nausea, or vomiting. He is tolerating a liquid diet. OBJECTIVE: He is afebrile. Vital signs are stable.General: He is awake, alert, and oriented x3. No acute distress. Gastrointestinal: Soft, nontender, nondistended. Incision is clean, dry, and intact. LABORATORY: Reviewed and unremarkable, except for BUN of 52 and creatinine 2.0. I should point out that his blood pressure has been a little low this morning in the 70s systolic. ASSESSMENT AND PLAN: A 59-year-old male, status post laparoscopic cholecystectomy with multiple medical comorbidities. Given his increased BUN and creatinine and decreased systolic blood pressure, I am going to give him a gentle normal saline bolus. cc: MD Federico Galvan MD
--- NOTE | 2019-08-10 18:56 | PROGRESS NOTE ---
DATE: 08/10/2019 OBJECTIVE: Vital signs: Temperature 98.3 degrees, heart rate 65, respirations 18, blood pressure 94/54, O2 saturation 95% on 2.5 L nasal oxygen. SUBJECTIVE: He had an episode of hypotension with systolic being in the 70s. He almost had a syncopal episode when sitting on the side of the bed. He was given some IV fluids and encouraged to drink a little more. This afternoon, his pressure is a little better, but Dr. Munoz wanted him to stay until tomorrow to be sure his pressure would be stable. Hydralazine was discontinued. PLAN: Discharge home soon. Discussion was made with his [id number], who will be his primary caregiver. Home health will also assist. He will hopefully be able to go home tomorrow. cc: MD Federico Mendoza MD
--- NOTE | 2019-08-10 19:54 | DISCHARGE SUMMARY ---
ADMISSION DATE: 07/30/2019 DISCHARGE DATE: 08/10/2019 FINAL DIAGNOSES: Congestive heart failure with pulmonary edema, marked edema of his penis and scrotum, diabetes, chronic cholecystitis with cholelithiasis, hypertension. DISCHARGE MEDICATIONS: Lasix 40 mg b.i.d., Zaroxolyn 2.5 mg 1 daily, losartan 50 mg 1 daily, potassium chloride 10 mEq b.i.d., spironolactone 25 mg once daily, hydralazine 25 mg t.i.d., glimepiride 1 mg 1 daily, [place] 10/325 q.i.d. p.r.n. back pain. HISTORY: This is the first recent [facility] admission for this 59-year-old, white man, diabetic with bilateral BKA amputation history who developed progressive shortness of breath and marked edema of his scrotum over several days prior to admission. He complained of shortness of breath, but no chest pain. Consultations with Cardiology and Surgery. Additional history, the patient has known peripheral artery disease. 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 He was admitted for diuresis and for further evaluation. INITIAL LABORATORY: Hemoglobin 10.9, hematocrit 35.4, white blood count 5,600. Sodium 142, potassium 4.1, BUN 17, creatinine 0.9. ProBNP 11,922. Troponin T 0.09, alkaline phosphatase 162, bilirubin 0.68, AST 17, ALT 9, albumin 3.3. HOSPITAL COURSE: He responded well to diuresis and scrotal edema improved. There was difficulty in controlling his blood pressure requiring addition of hydralazine, losartan, and increasing carvedilol. There was malodor of stool and Clostridium difficile was checked. Antigen was positive and toxin was negative. He was placed on Dificid. There was possibility also of pneumonia and he was placed on Rocephin initially, then changed to doxycycline. Gallbladder ultrasound revealed gallstones. There was possibility of chronic cholecystitis. Dr. Escudero was consulted and decision made to proceed with cholecystectomy. Laparoscopic procedure was done yesterday and the patient had no complications. Discussion has been made with the patient concerning rehab or other placement since there is limited help at home. He is confident that his [id number] will take care of him and desires to go home. He is discharged home on the above medications, to be seen back in the office in 1 week for followup. cc: MD Federico Mendoza MD
[2019-08-10] MEDS: DESYREL PO PRN (21:07)
[2019-08-11] MEDS: LR 1,000 ML IV SCH (03:17)
[2019-08-11] MEDS: ZANAFLEX PO SCH ×3 (04:24→21:07)
[2019-08-11] MEDS: PRILOSEC PO SCH ×2 (05:57→07:19)
[2019-08-11] MEDS: HUMALOG SUBQ SCH ×4 (06:18→21:37)
[2019-08-11] MEDS: NS 250 ML IV PRN ×2 (06:19→06:44)
[2019-08-11] MEDS: COZAAR PO SCH ×2 (08:24→11:56)
[2019-08-11] MEDS: ISORDIL PO SCH ×3 (08:24→16:00)
[2019-08-11] MEDS: COREG PO SCH ×2 (08:24→21:07)
[2019-08-11] MEDS: DIFICID PO SCH ×2 (08:32→21:07)
[2019-08-11] MEDS: ASPIRIN EC PO SCH (08:32)
[2019-08-11] MEDS: LEXAPRO PO SCH (08:32)
[2019-08-11] MEDS: ALDACTONE PO SCH (08:32)
[2019-08-11] MEDS: LASIX PO SCH (08:32)
[2019-08-11] MEDS: MIRALAX PO SCH (08:32)
[2019-08-11] MEDS: FLOMAX PO SCH (08:33)
[2019-08-11] MEDS: ZAROXOLYN PO SCH (08:33)
[2019-08-11] MEDS: DOXYCYCLINE PO SCH ×2 (08:33→21:14)
[2019-08-11] MEDS: COLACE PO SCH ×2 (08:33→21:05)
[2019-08-11] MEDS: KLOR-CON PO SCH (08:33)
[2019-08-11] MEDS: REGLAN PO SCH ×3 (08:33→16:18)
[2019-08-11] MEDS: PERIDEX MT SCH ×2 (08:33→21:07)
[2019-08-11] MEDS ORDERED: NS 500 ML IV SCH (09:00)
--- NOTE | 2019-08-11 13:02 | PROGRESS NOTE ---
DATE: 08/11/2019 SUBJECTIVE: Patient is a 59-year-old, white gentleman, admitted with shortness of breath and leg swelling. Initially patient found to have congestive heart failure, anemia, possible pneumonia on the right side with pleural effusion, diabetic neuropathy. Patient also has had bilateral below- knee amputation. Admission history and physical noted. Patient had pulmonary arteriogram done and it was negative for pulmonary embolism. The patient had abdominal ultrasound done, which revealed cholelithiasis, no evidence of acute cholecystitis. The patient underwent cholecystectomy. Patient's HIDA scan did reveal possibility of chronic cholecystitis. The patient underwent. Cholecystectomy on August 09. Plan was to discharge patient home today, but the patient had multiple episode of hypotension yesterday, at times blood pressure was 70/30. Patient was given multiple boluses of IV fluid. The patient still has Paula catheter and he is on a clear liquid diet. He denied any chest pain. No high-grade fever or chills. Admission history and physical, cardiology consult and surgical consult noted. OBJECTIVE: Vital Signs: Blood pressure 89/54, pulse 67, respirations 15, temperature 98.1 degrees. Skin: Senile turgor. Neck: Supple. No JVD. Lungs: Bibasilar crepitations. Heart: 2/6 systolic murmur at the apex. Abdomen: Soft, globular. Bowel sounds present. Mild tenderness. GLUE SPRAYER: Alert, awake, able to move all 4 limbs. Patient does have bilateral below- knee amputation. LABORATORY: Lab data done on August 10: Hemoglobin 8.3 hematocrit 27.3, WBC count 7.27, platelet 331,000. Electrolytes, BUN went up to 51 and creatinine 2. CONSIDERATION: Hypotension, could be due to medication effect. I am going to hold his Lasix. The patient was on Lasix, Aldactone and Zaroxolyn. We will give him some more IV fluids. The patient was started on diet. We will watch patient how he does on diet. I am going to discontinue Paula catheter soon. I am going to hold the Cozaar until his blood pressure improves. HIS OTHER PROBLEMS INCLUDE: 1. Acute on chronic kidney disease. 2. Chronic cholecystitis. 3. IDDM. 4. Bilateral below-knee amputation. 5. Coronary artery disease. PLAN: I am going to hold discharge today. Plan discussed with the patient and he is in agreement. cc: MD Federico Melendrez MD
[2019-08-11] MEDS: NS 1,000 ML IV SCH ×2 (13:23→23:47)
--- NOTE | 2019-08-11 14:07 | GENERAL SURGERY PROGRESS NOTE ---
DATE: 08/11/2019 SUBJECTIVE: Patient seems to be doing okay. OBJECTIVE: Vital Signs: The patient's current temperature 98.1 degrees, pulse 67, blood pressure 89/54. General: No acute distress. Cardiovascular: Regular rate and rhythm. Lungs: Grossly clear. Abdomen: Soft, appropriately tender. LABORATORY DATA: Pending from this morning. ASSESSMENT AND PLAN: A 59-year-old gentleman status post laparoscopic cholecystectomy. Postoperative state. At this time, he still has a little bit of a blood pressure issue but he seems to be stable and up sitting around. His creatinine yesterday was slightly elevated. We will defer to his primary care physician at this point. We will start him on a low-fat diet and follow while he is in the hospital. cc: MD Federico Chase MD
[2019-08-11] MEDS: NORCO-7.5 PO PRN ×2 (16:18→20:19)
[2019-08-12] MEDS: DESYREL PO PRN ×2 (00:46→20:10)
[2019-08-12] MEDS: NORCO-7.5 PO PRN ×4 (00:46→23:51)
[2019-08-12] MEDS: NS 1,000 ML IV SCH ×2 (01:56→11:55)
[2019-08-12] MEDS: ZANAFLEX PO SCH ×3 (04:54→20:09)
[2019-08-12] MEDS: PRILOSEC PO SCH ×2 (05:50→06:10)
[2019-08-12] MEDS: HUMALOG SUBQ SCH ×4 (06:38→21:10)
[2019-08-12 06:44] LABS: BASO# 0.02 X1000 (0.0-0.2); BASO% 0.4 % (0.0-0.8); EOS# 0.26 X1000 (0.0-0.7); EOS% 4.7 % (0.0-10.0); HEMOGLOBIN 6.5 g/dL (14.0-18.0); IMM GRAN# 0.02 X1000 (0.0-0.04); IMM GRAN% 0.4 % (0.0-0.5); LYMPH# 1.49 X1000 (1.2-3.4); LYMPH% 26.8 % (20.5-51.1); MCH 26.6 PG (27-31); MCV 86.1 FL (81-99); MONO# 0.75 X1000 (0.11-0.59); MONO% 13.5 % (1.7-9.3); MPV 10.5 FL (7.4-10.4); NEUT# 3.01 X1000 (1.4-6.5); NEUT% 54.2 % (42.2-75.2); PLT 279 X1000 (130-400); RBC 2.44 XMIL (4.7-6.1); RDW 14.6 % (11.5-14.5); WBC 5.55 X1000 (4.8-10.8)
[2019-08-12 07:15] LABS: ALB/GLOB RATIO 1.3; ALBUMIN 3.3 g/dL (3.5-5.0); CALCIUM 8.3 mg/dL (8.8-10.2); CREATININE 2.1 mg/dL (0.7-1.2); MAGNESIUM 1.7 mg/dL (1.5-2.7); POTASSIUM 4.7 mmol/L (3.5-5.1); TOTAL BILIRUBIN 0.43 mg/dL (0.20-1.00); TOTAL PROTEIN 5.9 g/dL (6.3-8.3)
--- NOTE | 2019-08-12 07:47 | Diag Imaging Result Doc PS360 ---
EXAM: CHEST-1 VIEW HISTORY: sob TECHNIQUE: Single view COMPARISON: 08/10/2019 FINDINGS: The lungs are well expanded. No cardiomegaly. There is central vascular distention. This slightly more prominent. No pleural effusions identified. No consolidation. IMPRESSION: Mild interval worsening Electronically signed by Iban Cortes 08/12/2019 7:45 AM
[2019-08-12] MEDS: COLACE PO SCH ×2 (08:24→20:12)
[2019-08-12] MEDS: MIRALAX PO SCH (08:27)
[2019-08-12] MEDS: LEXAPRO PO SCH (08:30)
[2019-08-12] MEDS: COREG PO SCH ×2 (08:30→20:09)
[2019-08-12] MEDS: FLOMAX PO SCH (08:31)
[2019-08-12] MEDS: DIFICID PO SCH ×2 (08:31→20:10)
[2019-08-12] MEDS: ALDACTONE PO SCH (08:31)
[2019-08-12] MEDS: ASPIRIN EC PO SCH (08:31)
[2019-08-12] MEDS: REGLAN PO SCH ×3 (08:32→17:36)
[2019-08-12] MEDS: ZAROXOLYN PO SCH (08:32)
[2019-08-12] MEDS: KLOR-CON PO SCH (08:33)
[2019-08-12] MEDS: ISORDIL PO SCH ×3 (08:33→17:36)
[2019-08-12] MEDS: PERIDEX MT SCH ×2 (08:33→20:10)
[2019-08-12] MEDS: DOXYCYCLINE PO SCH ×2 (08:43→20:09)
--- NOTE | 2019-08-12 09:48 | GENERAL SURGERY PROGRESS NOTE ---
DATE: 08/12/2019 The patient seems to be doing okay. His blood pressure is a little bit better today than it was yesterday, but still a little bit low. He is up and ambulating. He seems to be doing okay. Will defer discharge to his primary care physician's team. cc: MD Federico Chase MD
--- NOTE | 2019-08-12 11:10 | PROGRESS NOTE ---
DATE: 08/12/2019 SUBJECTIVE: Mr. Oliveira is doing better. The patient does have vague pain in the upper abdomen which he described as a soreness. At times, shortness of breath. Oral intake is fair. No typical chest pain. No high-grade fever or chills. The patient is status post cholecystectomy. Patient had episode of hypotension which we treated with IV fluid and holding some of his diuretics. I repeated blood work this morning. His hemoglobin is 6.5, hematocrit 21. Hemoglobin prior to surgery was around 10. BUN 55, creatinine 2.1. OBJECTIVE: Vital Signs: Blood pressure 101/62, pulse 62, respirations 15, temperature 97.8 degrees. Skin: Senile turgor. Neck: Supple. No JVD. Lungs: Bibasilar crepitations. Heart: S1 and S2 heard. A 2/6 systolic murmur at the apex. Abdomen: Soft, globular. Mild soreness, epigastrium and right upper quadrant. Extremities: No cyanosis, clubbing. Patient does have bilateral below-knee amputation. CONSIDERATION: 1. Anemia, most likely blood loss. 2. Hypotension. 3. Chronic kidney disease. 4. Congestive heart failure. 5. History of chronic cholecystitis, status post gallbladder surgery. 6. Diabetes mellitus. PLAN: I am going to transfuse 2 units of packed RBC. Discuss his presentation and plan with surgeon and also the patient. cc: MD Federico Melendrez MD
[2019-08-12] MEDS: COZAAR PO SCH (11:55)
[2019-08-12] MEDS ORDERED: LASIX IV ONE (13:00)
[2019-08-13] MEDS: NORCO-7.5 PO PRN ×3 (04:04→20:47)
[2019-08-13] MEDS: ZANAFLEX PO SCH ×2 (04:33→12:12)
[2019-08-13] MEDS: PRILOSEC PO SCH ×2 (05:40→06:09)
[2019-08-13] MEDS: HUMALOG SUBQ SCH ×4 (06:14→20:48)
--- NOTE | 2019-08-13 08:01 | PROGRESS NOTE ---
DATE: 08/13/2019 OBJECTIVE: Vital Signs: Temperature 98.7 degrees, heart rate 64, respiration 19, blood pressure 142/79. On sitting up, his blood pressure dropped to 94/70. Chest: Clear. : There is no scrotal or penal edema. LABORATORY DATA: His hematocrit dropped to 21 yesterday, and he was given 2 units of packed red blood cells. Lab is pending today. PLAN: Discontinue Paula. If his lab work is stable and he is feeling well this afternoon, there is a possibility of discharge home. cc: MD Federico Mendoza MD
[2019-08-13] MEDS: KLOR-CON PO SCH (08:26)
[2019-08-13] MEDS: PERIDEX MT SCH ×2 (08:26→20:48)
[2019-08-13] MEDS: FLOMAX PO SCH (08:27)
[2019-08-13] MEDS: DIFICID PO SCH (08:27)
[2019-08-13] MEDS: DOXYCYCLINE PO SCH (08:27)
[2019-08-13] MEDS: ASPIRIN EC PO SCH (08:27)
[2019-08-13] MEDS: ZAROXOLYN PO SCH (08:27)
[2019-08-13] MEDS: ALDACTONE PO SCH (08:27)
[2019-08-13] MEDS: LEXAPRO PO SCH (08:27)
[2019-08-13] MEDS: ISORDIL PO SCH ×3 (08:27→16:49)
[2019-08-13] MEDS: MIRALAX PO SCH (08:27)
[2019-08-13] MEDS: COREG PO SCH ×2 (08:27→20:47)
[2019-08-13] MEDS: COZAAR PO SCH (08:27)
[2019-08-13] MEDS: COLACE PO SCH ×2 (08:27→20:47)
[2019-08-13] MEDS: REGLAN PO SCH ×3 (08:28→17:11)
[2019-08-13 08:36] LABS: CALCIUM 8.8 mg/dL (8.8-10.2); CREATININE 1.7 mg/dL (0.7-1.2); POTASSIUM 4.4 mmol/L (3.5-5.1)
[2019-08-13] MEDS ORDERED: VENOFER 250 MG in NS 150 ML IV ONE (09:18)
[2019-08-13] MEDS ORDERED: LASIX IV ONE (09:27)
--- NOTE | 2019-08-13 12:40 | GENERAL SURGERY PROGRESS NOTE ---
DATE: 08/13/2019 SUBJECTIVE: The patient is doing well. He denies any significant problems overnight. He has mild soreness. No nausea or vomiting. He is eating. OBJECTIVE: He is afebrile. Vital signs are stable.General: He is awake, alert, oriented x3. No acute distress. Gastrointestinal: Abdomen soft, nontender, nondistended. Incisions clean, dry, and intact. LABORATORY: Hematocrit 26, up from 21. Electrolytes reviewed and unremarkable. ASSESSMENT AND PLAN: A 59-year-old male status post laparoscopic cholecystectomy. Overall appears to be healing well from that. I am not sure why he had the anemia, but certainly could be from blood loss. In any case, his blood pressure looks stable and he seems to be safe for discharge from my standpoint. cc: MD Federico Galvan MD
[2019-08-13 13:35] LABS: HEMATOCRIT 24.4 % (42.0-52.0); HEMOGLOBIN 7.8 g/dL (14.0-18.0); MCH 27.9 PG (27-31); MCV 87.1 FL (81-99); MPV 10.3 FL (7.4-10.4); RBC 2.8 XMIL (4.7-6.1); RDW 14.9 % (11.5-14.5); WBC 7.34 X1000 (4.8-10.8)
[2019-08-13 19:09] LABS: HEMATOCRIT 26.5 % (42.0-52.0); HEMOGLOBIN 8.4 g/dL (14.0-18.0)
[2019-08-14] MEDS: DESYREL PO PRN (00:30)
[2019-08-14] MEDS: NORCO-7.5 PO PRN ×3 (00:30→10:31)
[2019-08-14 06:01] LABS: HEMATOCRIT 27.3 % (42.0-52.0); HEMOGLOBIN 8.8 g/dL (14.0-18.0)
[2019-08-14] MEDS: HUMALOG SUBQ SCH ×2 (06:26→12:18)
[2019-08-14] MEDS: PRILOSEC PO SCH (06:26)
[2019-08-14 06:43] LABS: CALCIUM 9.4 mg/dL (8.8-10.2); CREATININE 1.3 mg/dL (0.7-1.2); MAGNESIUM 1.5 mg/dL (1.5-2.7); POTASSIUM 4.5 mmol/L (3.5-5.1)
[2019-08-14] MEDS: COLACE PO SCH (08:43)
[2019-08-14] MEDS: ASPIRIN EC PO SCH (08:44)
[2019-08-14] MEDS: ISORDIL PO SCH ×2 (08:44→12:42)
[2019-08-14] MEDS: KLOR-CON PO SCH (08:44)
[2019-08-14] MEDS: LEXAPRO PO SCH (08:44)
[2019-08-14] MEDS: FLOMAX PO SCH (08:44)
[2019-08-14] MEDS: MIRALAX PO SCH (08:44)
[2019-08-14] MEDS: REGLAN PO SCH ×2 (08:44→12:42)
[2019-08-14] MEDS: COREG PO SCH (08:44)
[2019-08-14] MEDS: COZAAR PO SCH (08:44)
[2019-08-14] MEDS: PERIDEX MT SCH (08:44)
[2019-08-14] MEDS: ALDACTONE PO SCH (08:44)
[2019-08-14] MEDS ORDERED: LASIX PO SCH (09:00)
[2019-08-14 11:34] VITALS: BP 132/74
--- NOTE | 2019-08-14 23:33 | DISCHARGE SUMMARY ---
ADMISSION DATE: 07/30/2019 DISCHARGE DATE: 08/14/2019 ADDENDUM: ADDITIONAL DIAGNOSES: 1. Anemia post cholecystectomy. 2. Hypotension. 3. Chronic kidney disease stage 1. Last BUN was 44 and creatinine 1.3 on this morning. Blood sugar is 148. He is feeling well and chest is clear to auscultation. Blood pressure early a.m. was 105/71, latest blood pressure is 129/104. O2 saturation on 2 liters nasal oxygen is 100%. He will use his oxygen at home p.r.n. It is felt he has reached maximal benefit of hospitalization. Discussion was made with the patient and his [id number] who will be his caregiver, and decision was made to go home instead of to rehab. He will have home health assistance. Blood pressure medicines were decreased. Losartan was decreased to 50 mg 1 daily. Coreg was increased from 6.25 mg b.i.d. to 12.5 mg b.i.d. Hydralazine was discontinued. Spironolactone was discontinued. He had congestive heart failure on admission with marked scrotal and penis edema. These have resolved. Insulin is discontinued. He is to be seen back in the office in 2 weeks or as needed for followup. cc: MD Federico Mendoza MD
== END 2019-08-14 15:26 | disposition home or self-care (01) | DRG 987 ==
LOC: EDBD → SUPCPDRO → ED 15:20 → EDIPHOLD 18:48 → 3N 20:57 → 2N 07-31 14:14
PROVIDERS: ADMIT Internal Medicine; ATTEND Family Medicine